=== PATIENT | female | born 1960 | race Caucasian/White ===

== ENCOUNTER → 2017-05-31 | Outpatient (CLI) | payer SELFPAY | PROVIDERS: Visit Provider Physician Assistant | DX: M25.50 Pain in unspecified joint (principal); E03.9 Hypothyroidism, unspecified; I10 Essential (primary) hypertension; E55.9 Vitamin D deficiency, unspecified; R63.5 Abnormal weight gain; Z13.220 Encounter for screening for lipoid disorders | CPT/HCPCS: 36415; 80053; 80061; 82306; 84443; 84550; 85025; 85651; 86038; 86431 ==

== ENCOUNTER → 2018-08-15 14:20 | Outpatient (CLI) | payer MEDICARE, SELFPAY ==
--- NOTE | 2018-08-15 14:33 | XR_ITS ---
XR chest 2V HISTORY: ITS.REASON: BRONCHITIS ORDERING PHYSICIAN: PRESTON Reed PATIENT AGE: 58 years COMPARISON: 06/02/2016 FINDINGS: The cardiomediastinal silhouette and pulmonary vascularity are within normal limits. The lungs are clear without infiltrates, suspicious nodules, or pleural effusions. No acute bony abnormalities. IMPRESSION: Negative chest, no acute finding
--- NOTE | 2018-08-15 14:33 | XR_ITS ---
XR knee RT 3V HISTORY: ITS.REASON: RT KNEE PAIN ORDERING PHYSICIAN: PRESTON Reed PATIENT AGE: 58 years COMPARISON: None FINDINGS: There are severe osteoarthritic changes of the medial compartment with moderate osteoarthritis of the lateral compartment and patellofemoral joint. No fracture or dislocation. No lytic or blastic change. IMPRESSION: Severe osteoarthritis of the medial compartment with moderate osteoarthritis of the lateral compartment and patellofemoral joint
--- NOTE | 2018-08-15 14:33 | XR_ITS ---
XR knee LT 3V HISTORY: ITS.REASON: LT KNEE PAIN ORDERING PHYSICIAN: PRESTON Reed PATIENT AGE: 58 years COMPARISON: None FINDINGS: There are severe osteoarthritic changes of the medial compartment and moderate osteoarthritic change of the lateral compartment and patellofemoral joint. There is mild there is angulation of the tibia with minimal lateral subluxation of the proximal tibia by approximately 4 mm. No fracture or dislocation evident. The there are low density changes involving the lateral femoral condyle. This may be a reflection of the positioning and technique. The findings are similar on the right side probably related to positioning. IMPRESSION: Severe osteoarthritic changes of the medial compartment with moderate osteoarthritis of the lateral compartment and patellofemoral joint
== END ==
PROVIDERS: PCP Physician Assistant; Visit Provider Physician Assistant
DX: J40 Bronchitis, not specified as acute or chronic (principal); M25.562 Pain in left knee; M25.561 Pain in right knee
CPT/HCPCS: 71046; 73562

== ENCOUNTER → 2019-03-12 08:40 | Outpatient (CLI) | payer MEDICARE, SELFPAY ==
--- NOTE | 2019-03-12 08:47 | MM_ITS ---
PROCEDURE: MM DIG SCREENING MAMM BI W/CAD CLINICAL INDICATION: SCREENING There is a history of breast cancer patient's sister diagnosed in her 60s. COMPARISON: MOBILE DIGITAL SCREEN BILAT* from 06/21/2012 DMSB DIG MAMM-SCREEN THOMAS from 12/30/2013 DMSB DIG MAMM-SCREEN THOMAS from 04/24/2015 TECHNIQUE: Standard CC and MLO images were obtained. R2 CAD reviewed. FINDINGS: Scattered fibroglandular densities are seen in both breasts on a background of primarily fatty breast parenchyma. The findings of bilateral and symmetrical. There is no suspicious lesion and no suspicious microcalcifications. IMPRESSION: Fibrofatty parenchyma with no suspicious lesions seen BI-RAD Category: 1 Negative FOLLOW-UP: 1YR 1 Year Follow-up (A letter has been sent to the patient regarding results of the study.) Dictated by: Dr. Haroon Keene MD 03/15/2019 09:[address] Haroon Keene MD in [place] 03/15/2019 09:03
== END ==
PROVIDERS: PCP Family Medicine; Visit Provider Physician Assistant
DX: Z12.31 Encounter for screening mammogram for malignant neoplasm of breast (principal)
CPT/HCPCS: 77067

== ENCOUNTER → 2020-05-20 08:14 | Outpatient (CLI) | payer MEDICARE, SELFPAY ==
--- NOTE | 2020-05-20 08:17 | MM_ITS ---
PROCEDURE: MM DIG SCREENING MAMM BI W/CAD Digital Breast Tomosynthesis Included CLINICAL INDICATION: SCREENING There is a history of breast cancer patient's sister diagnosed after menopause. COMPARISON: MG DMSB DIG MAMM-SCREEN THOMAS from 12/30/2013 MG DMSB DIG MAMM-SCREEN THOMAS from 04/24/2015 MG MM DIG SCREENING MAMM BI W/CAD from 03/12/2019 TECHNIQUE: Standard CC and MLO images and 3D Tomosynthesis was obtained. R2 CAD reviewed. FINDINGS: Diffuse fibroglandular densities are seen throughout both breasts. There is faint arterial calcification in each breast. There is a small nodular density lower inner quadrant left breast best seen on the CC view and best seen on CC bertha images. This was faintly seen previously but appears to have shown slight interval enlargement. It has benign features but recommend the patient return for spot compression views and ultrasound for additional evaluation. There are no suspicious microcalcifications. IMPRESSION: Fibrofatty parenchyma with possible change in asymmetric density left breast BI-RAD Category: 0 Need Additional Imaging Evaluation FOLLOW-UP: IMM Immediate Follow-up Recommended (A letter has been sent to the patient regarding results of the study.) Dictated by: Dr. Haroon Keene MD 05/22/2020 09:12 Dr. Haroon Keene MD in [place] 05/22/2020 09:12
--- NOTE | 2020-05-20 08:23 | XR_ITS ---
PROCEDURE: XR DEXA AXIAL SKELETON CLINICAL HISTORY: POST MENOPAUSAL COMPARISON: No exams were available for comparison FINDINGS: The right hip BMD is 0.555 with a T-score of -2.7. The left hip BMD is 0.728 with a T-score of -1.1. The lumbar spine BMD is 0.924 with a T-score of -1.1. IMPRESSION: This patient is considered osteoporotic according to the World Health Organization criteria. Fracture risk is high. Treatment is advised. Based on these results a follow-up exam is recommended in 1 year. Dictated by: Mason Bah MD 05/21/2020 14:47 Mason Bah MD in [place] 05/21/2020 14:47
== END ==
PROVIDERS: PCP Family Medicine; Visit Provider Physician Assistant
DX: Z12.31 Encounter for screening mammogram for malignant neoplasm of breast (principal); Z78.0 Asymptomatic menopausal state
CPT/HCPCS: 77063; 77067; 77080

== ENCOUNTER → 2020-06-12 14:35 | Outpatient (CLI) | payer MEDICARE, SELFPAY ==
[2020-06-12 14:00] VITALS: BP 154/76; PULSE 62; RESP 18; TEMP 36.3; O2SAT 98
--- NOTE | 2020-06-12 14:40 | MM_ITS ---
PROCEDURE: MM DIG MAMM DX UNILAT LT CAD Digital Breast Tomosynthesis Included CLINICAL INDICATION: ABN MAMM COMPARISON: MG DMSB DIG MAMM-SCREEN THOMAS from 04/24/2015 MG MM DIG SCREENING MAMM BI W/CAD from 03/12/2019 MG MM DIG SCREENING MAMM BI W/CAD from 05/20/2020 US US BREAST LT COMPLETE from 06/12/2020 TECHNIQUE: Standard CC and MLO images and 3D Tomosynthesis was obtained. R2 CAD reviewed. Spot compression MLO and CC views were obtained as well. FINDINGS: The tiny nodular density appears less worrisome on the spot compression views. No architectural distortion and no suspicious microcalcifications. Ultrasound performed same date showed no abnormal cystic or solid lesion at this location. IMPRESSION: Tiny nodular density likely representing and very early fibroadenoma isoechoic on ultrasound and with certainly no findings to suggest malignancy BI-RAD Category: 2 Benign Finding(s) FOLLOW-UP: 1YR 1 Year Follow-up (A letter has been sent to the patient regarding results of the study.) Dictated by: Dr. Haroon Keene MD 06/21/2020 09:00 Dr. Haroon Keene MD in [place] 06/21/2020 09:00
--- NOTE | 2020-06-12 14:40 | US_ITS ---
PROCEDURE: US BREAST LT COMPLETE CLINICAL INDICATION: ABN MAMM COMPARISON: No exams were available for comparison FINDINGS: Ultrasound survey of the breast shows rather homogeneous echogenicity. There is no suspicious cystic or solid lesion seen. There is a normal appearing node in the axilla. IMPRESSION: Essentially negative ultrasound left breast and recommend the patient continue with yearly screening mammography Dictated by: Dr. Haroon Keene MD 06/21/2020 09:04 Dr. Haroon Keene MD in [place] 06/21/2020 09:04
== END ==
PROVIDERS: PCP Family Medicine; Visit Provider Physician Assistant
DX: R92.8 Other abnormal and inconclusive findings on diagnostic imaging of breast (principal); M81.0 Age-related osteoporosis without current pathological fracture
CPT/HCPCS: 76641; 77061; 77065; 96372; G0279

== ENCOUNTER 2020-09-10 16:24 | Emergency (ER) | payer MEDICARE, SELFPAY ==
[2020-09-10 16:25] VITALS: BP 154/78; PULSE 81; RESP 18; TEMP 36.7; O2SAT 97; BMI 48.0
--- NOTE | 2020-09-10 16:25 | PC.NURSE ---
at bedside upon arrival.
--- NOTE | 2020-09-10 16:33 | PC.NURSE ---
FSBS 103
--- NOTE | 2020-09-10 16:36 | PC.NURSE ---
Pt to rad.
--- NOTE | 2020-09-10 16:37 | HMH.EDGENADL ---
ED Disposition Clinical Impression: Ruby's palsy Disposition: Home, Self-Care Condition on Discharge: Good Instructions: DI for Aragon Palsy Additional Instructions: Prednisone and Valtrex as prescribed Artificial tears every hour while awake Ophthalmic ointment at night Eye should be taped shut at night Protective glasses or goggles to protect from sunshine and wind Follow-up with your primary care provider, call tomorrow for appointment. Prescriptions: predniSONE [Prednisone 20mg Tab] 60 mg PO DAILY #21 tab Transmission Status: Received by [facility] Valacyclovir HCl [Valtrex] 1,000 mg PO TID #21 tab Transmission Status: Received by [facility] Referrals: Antonio Odell MD [Primary Care Provider] - 3 days (See him in his office on Monday) - Critical Care Critical Care Time: No Attestation: On , the high probability of a clinically significant, sudden or life threatening deterioration of the following system(s) required my full and direct attention, intervention and personal management. The time I documented below is in addition to time spent performing reported procedures but includes the following listed in this critical care notation. Medical Decision Making - Nik Inquiry Pt receiving controlled substance: No Vital Signs: 09/10/20 16:25 09/10/20 17:01 09/10/20 17:31 Temperature 98.1 F Temperature Source Oral Pulse Rate 64 62 Pulse Rate [Right] 81 Respiratory Rate 18 Blood Pressure 139/70 131/71 Blood Pressure [Right Arm] 154/78 H Blood Pressure Mean 80 86 Blood Pressure Mean [Right Arm] 103 Blood Pressure Source Blood Pressure Position 02 Sat by Pulse Oximetry 97 95 95 09/10/20 18:05 09/10/20 18:30 Temperature Temperature Source Pulse Rate 79 75 Pulse Rate [Right] Respiratory Rate 14 12 Blood Pressure 117/52 L 120/62 Blood Pressure [Right Arm] Blood Pressure Mean Blood Pressure Mean [Right Arm] Blood Pressure Source Automatic Cuff Automatic Cuff Blood Pressure Position Supine Supine 02 Sat by Pulse Oximetry 93 L 94 L - Lab Data Lab Results 09/10/20 16:37: WBC 8.1, RBC 4.82, Hgb 13.8, Hct 42.0, MCV 87.2, MCH 28.6, MCHC 32.8, RDW 14.5, Plt Count 262, MPV 7.9, Neut % (Auto) 59.0, Lymph % (Auto) 32.3, [place] % (Auto) 5.8, Eos % (Auto) 2.5, Baso % (Auto) 0.4, Neut # (Auto) 4.8, Lymph # (Auto) 2.6, [place] # (Auto) 0.5, Eos # (Auto) 0.2, Baso # (Auto) 0.0 09/10/20 16:37: PT 10.6, INR 0.89 L 09/10/20 16:37: Sodium 139, Potassium 4.1, Chloride 104, Carbon Dioxide 28, Anion Gap 11.1, BUN 22 H, Creatinine 0.80, Estimated Creat Clear 66, Estimated GFR 74, Est GFR ( Amer) 89, Glucose 107 H, Calcium 9.5, Total Bilirubin 0.4, AST 23, ALT 15, Alkaline Phosphatase 96, Total Protein 7.5, Albumin 4.2, Globulin 3.3 H, Albumin/Globulin Ratio 1.3 Result diagrams: 09/10/20 16:37 09/10/20 16:37 Orders (Tests/Meds): ED MEDICATIONS Discontinued Medications Generic Name Dose Route Start Last Admin Trade Name Freq PRN Reason Stop Dose Admin Diphenhydramine HCl 25 mg 09/10/20 17:57 09/10/20 18:10 Diphenhydramine 50mg/Ml Vial IV 09/10/20 17:58 25 mg ONCE ONE Administration Iopamidol 100 ml 09/10/20 19:33 09/10/20 19:35 Iopamidol-370 (76%);100ml Bottle IV 09/10/20 19:34 100 ml ONCE ONE Administration Methylprednisolone Sodium Succinate 125 mg 09/10/20 17:57 09/10/20 18:07 Methylprednisolone Sod Succ 125mg Vial IV 09/10/20 17:58 125 mg ONCE ONE Administration Sodium Chloride 50 ml 09/10/20 19:33 09/10/20 19:35 0.9 % Sodium Chloride 50 Ml Vial IV 09/10/20 19:34 50 ml ONCE ONE Administration ORDERS Category Date Time Status CT angio head Stat Cat Scan 09/10/20 17:[address] angio neck Stat Cat Scan 09/10/20 17:[address] head/brain wo con Stat Cat Scan 09/10/20 16:38 Taken - CT Data CT Scan: Head Time Received: 17:30 ([facility] fax) ED CT Reviewed: Yes: I have viewed the r
--- NOTE | 2020-09-10 16:38 | CT_ITS ---
PROCEDURE: CT HEAD/BRAIN WO CON CLINICAL INDICATION: facial droop Right-sided facial droop COMPARISON: No exams were available for comparison TECHNIQUE: Axial images obtained. All CT scans at the facility use one or more dose reduction, viz: automated exposure control, ma/kV adjustment per patient size (including targeted exams where dose is matched to indication, i.e. head), or iterative reconstruction technique. FINDINGS: No midline shift, mass effect, intracranial hemorrhage, hydrocephalus, or extra-axial fluid collection is evident. There is a 7 mm coarse calcific density in the right parietal lobe. 8 mm sub dural calcification noted in the right frontal parietal region. There is mild encephalomalacia change in the left posterior parietal region. This is just deep to craniotomy site. The calvarium has an unremarkable appearance. No mastoid effusion. No sinus air-fluid level. IMPRESSION: No acute intracranial findings. Dictated by: Mason Bah MD 09/11/2020 06:10 Mason Bah MD in [place] 09/11/2020 06:10
--- NOTE | 2020-09-10 16:40 | PC.NURSE ---
STATED PT WILL NOT MEET TPA CRITERIA BASED OFF NIH SCALE
[2020-09-10 17:01] VITALS: BP 139/70; PULSE 64; O2SAT 95
--- NOTE | 2020-09-10 17:02 | ECG_ITS ---
APPROVED REPORT Exam: Resting ECG HR:66 bpm ECG Measurements Heart Rate 66 AXES ID 170 P 62 QRSd 94 QRS 28 QT 430 T 32 QTc 450 Conclusion Normal sinus rhythm Normal ECG Electronically signed by : Royer Lee, 09/12/2020 08:41:58
[2020-09-10 17:04] LABS: Basophils % 0.4 % (0.1-2.0); Chloride 104 mmol/L (98-107); Eosinophils # 0.2 K/mm3 (0.0-0.4); Eosinophils % 2.5 % (0.1-12.0); Hemoglobin 13.8 g/dL (12.2-16.2); Lymphocytes # 2.6 K/mm3 (0.7-4.5); Lymphocytes % 32.3 % (10-50); Mean Corpuscular HGB Conc 32.8 g/dL (31.8-35.4); Mean Corpuscular Hemoglobin 28.6 pg (27.0-31.2); Mean Corpuscular Volume 87.2 fl (81-99); Mean Platelet Volume 7.9 fl (7.4-10.4); Monocytes # 0.5 K/mm3 (0.1-1.0); Monocytes % 5.8 % (1.7-9.3); Neutrophils # 4.8 K/mm3 (1.8-7.8); Platelet Count 262 K/mm3 (142-424); Red Blood Count 4.82 M/mm3 (4.20-5.40); Red Cell Distribution Width 14.5 % (11.5-17.5); Sodium 139 mmol/L (136-145); White Blood Count 8.1 K/mm3 (4.8-10.8)
[2020-09-10 17:05] LABS: Potassium 4.1 mmoL/L (3.5-5.1)
[2020-09-10 17:07] LABS: Alanine Aminotransferase 15 U/L (12-78); Albumin Level 4.2 g/dl (3.5-5.0); Albumin/Globulin Ratio 1.3 (1.1-1.8); Alkaline Phosphatase 96 U/L (38-126); Anion Gap 11.1 mEq/L (5-15); Aspartate Amino Transferase 23 U/L (14-36); Bilirubin,Total 0.4 mg/dl (0.2-1.3); Blood Urea Nitrogen 22 mg/dl (7-17); Calcium 9.5 mg/dl (8.4-10.2); Carbon Dioxide 28 mmol/L (22.0-30.0); Creatinine Clearance Estimated 66 mL/min (50-200); Estimated Glomerular Filt Rate 74 ml/min (>60); GFR (African American) 89 ML/MIN (>60); Globulin 3.3 g/dL (1.3-3.2); Glucose 107 mg/dl (74-100); Total Protein,Serum 7.5 g/dl (6.3-8.2)
[2020-09-10 17:14] LABS: INR 0.89 (0.9-1.1); Prothrombin Time 10.6 seconds (10.1-12.5)
--- NOTE | 2020-09-10 17:21 | PC.NURSE ---
ct called regarding head ct. informed that radiologist was still reading the ct
[2020-09-10 17:31] VITALS: BP 131/71; PULSE 62; O2SAT 95
--- NOTE | 2020-09-10 17:39 | CT_ITS ---
Procedure: CT ANGIO NECK CLINICAL HISTORY: facial weakness Facial weakness, right-sided facial droop with tongue numbness COMPARISON: CT CT ANGIO NECK from 09/10/[address] HEAD/BRAIN WO CON from 09/10/2020 TECHNIQUE: IV Contrast: 100ml Isovue 370. The patient pre-medicated with 25 mg of Benadryl IV the and 125 mg IV of Solu-Medrol Axial images obtained with sagittal and coronal reformats. All CT scans at the facility use one or more dose reduction, viz: automated exposure control, ma/kV adjustment per patient size (including targeted exams where dose is matched to indication, i.e. head), or iterative reconstruction technique. FINDINGS: CTA neck: The aortic arch has an unremarkable appearance. The great vessels are unremarkable. No significant stenosis of the carotid arteries.. No ulcerating plaque or dissection. There is minimal narrowing of the carotid bulb with some mild soft plaque of approximately 30 percent. There is tortuosity of the internal carotids. Minimal nonocclusive plaque is present in the left carotid bulb. No significant stenosis or dissection or ulcerating plaque. The left vertebral artery is dominant. The right vertebral is hypoplastic. No evidence of vertebral dissection or significant stenosis. CTA head: Nonocclusive calcific plaque is present within the ICAs cavernous portion. Small infundibulum is present at the anterior meningeal hypophyseal origin on the right. There is persistent origin of the right posterior cerebral artery. There is some minimal irregularity of the internal carotids within the cavernous portion. No aneurysm AVM or major intracranial occlusive process is evident. Incidental findings include heterogeneous mild enlargement of the thyroid gland with a 1 cm nodule in the left lobe. Small lymph nodes are present in the cervical region. There is some asymmetric prominence of the base of the tongue on the left. Direct visualization may provide further evaluation. No intracranial enhancing lesions are evident. Prior left craniotomy in the parietal occipital junction with encephalomalacia change. No evidence of dural sinus thrombosis. IMPRESSION: 1. Mild atheromatous changes of the carotids. No significant stenotic lesion or dissection evident. 2. Atheromatous changes of the cavernous portion of the ICAs on both sides with calcific plaque and luminal irregularity. No significant stenotic lesion evident. No aneurysm or AVM. 3. Other nonacute findings as described above Dictated by: Mason Bah MD 09/11/2020 11:56 Mason Bah MD in [place] 09/11/2020 11:58
--- NOTE | 2020-09-10 17:52 | PC.NURSE ---
TO CT PER WHEELCHAIR FOR CTA
[2020-09-10 18:05] VITALS: BP 117/52; PULSE 79; RESP 14; O2SAT 93
--- NOTE | 2020-09-10 18:12 | PC.NURSE ---
EVA WALSH GAVE MEDICATIONS IN CT TO PRE TREAT PATIENT PRIOR TO CT WITH CONTRAST. CT WANTS TO ALLOW ONE HOUR AFTER ADMINISTRATION TO PERFORM CTA
[2020-09-10 18:30] VITALS: BP 120/62; PULSE 75; RESP 12; O2SAT 94
--- NOTE | 2020-09-10 19:14 | PC.NURSE ---
Pt ambulated independently to bathroom at this time
[2020-09-10 20:44] VITALS: BP 128/65; PULSE 71; RESP 14; TEMP 36.7; O2SAT 97
[2020-10-14 14:03] LABS: POC Glucose,Bedside 103 (70-110)
== END 2020-09-10 20:46 | disposition home or self-care (01) ==
PROVIDERS: Emergency Provider Emergency Medicine; PCP Family Medicine
DX: G51.0 Bell's palsy (principal); R29.701 NIHSS score 1; F33.1 Major depressive disorder, recurrent, moderate; I10 Essential (primary) hypertension; M79.7 Fibromyalgia; E03.9 Hypothyroidism, unspecified; Z85.820 Personal history of malignant melanoma of skin
CPT/HCPCS: 70450; 70496; 70498; 80053; 82962; 85025; 85610; 93005; 96374; 96375; 99283; Q9967

== ENCOUNTER → 2021-06-21 12:30 | Outpatient (CLI) | payer MEDICARE, SELFPAY | PROVIDERS: PCP Family Medicine; Visit Provider Nurse Practitioner | DX: Z20.822 Contact with and (suspected) exposure to COVID-19 (principal) | CPT/HCPCS: C9803; U0003; U0005 ==

== ENCOUNTER 2023-02-09 21:10 | Emergency (ER) | payer MEDICARE, SELFPAY ==
[2023-02-09 21:16] VITALS: BP 114/88; PULSE 95; RESP 20; O2SAT 98; BMI 43.1
--- NOTE | 2023-02-09 21:27 | ECG_ITS ---
APPROVED REPORT Exam: Resting ECG HR:88 bpm ECG Measurements Heart Rate 88 AXES WY 153 P 34 QRSd 113 QRS 7 QT 384 T -1 QTc 429 Conclusion SINUS RHYTHM Nonsignificant isolated Q wave in lead III Minimally delayed poor R wave progression Otherwise NORMAL ECG UNCONFIRMED REPORT Electronically signed by : Royer Lee MD 02/10/2023 07:21:53
[2023-02-09 21:59] LABS: Basophils % 0.2 % (0.1-2.0); Eosinophils # 0.1 K/mm3 (0.0-0.4); Eosinophils % 0.7 % (0.1-12.0); Hematocrit 46.8 % (37.0-47.0); Hemoglobin 15.6 g/dL (12.2-16.2); Lymphocytes # 2.2 K/mm3 (0.7-4.5); Lymphocytes % 15.8 % (10-50); Mean Corpuscular HGB Conc 33.4 g/dL (31.8-35.4); Mean Corpuscular Hemoglobin 28.6 pg (27.0-31.2); Mean Corpuscular Volume 85.9 fl (81-99); Mean Platelet Volume 10.2 fl (7.4-10.4); Monocytes # 0.8 K/mm3 (0.1-1.0); Monocytes % 5.6 % (1.7-9.3); Neutrophils % 77.6 % (37.0-80.0); Platelet Count 225 K/mm3 (142-424); Red Blood Count 5.45 M/mm3 (4.20-5.40); Red Cell Distribution Width 14.4 % (11.5-17.5); White Blood Count 14.2 K/mm3 (4.8-10.8)
[2023-02-09 22:00] LABS: Chloride 102 mmol/L (98-107); Potassium 3.2 mmoL/L (3.5-5.1); Sodium 139 mmol/L (136-145)
--- NOTE | 2023-02-09 22:00 | HMH.EDGENADL ---
Discharge Plan Disposition Patient Disposition: Home, Self-Care Condition: Good Prescriptions Prescriptions: New promethazine 25 mg suppository 25 mg DC Q6H PRN (Reason: sedation) Qty: 12 0RF No Action losartan-hydrochlorothiazide 1 EACH tablet 1 each PO DAILY levothyroxine 50 MCG tablet 50 mcg PO DAILY sertraline 50 MG tablet 50 mg PO DAILY calcium carbonate 500 MG tablet 500 mg PO DAILY cholecalciferol (vitamin D3) 1,000 UNIT capsule 1,000 unit PO DAILY pregabalin 100 MG capsule 100 mg PO DAILY sulfamethoxazole-trimethoprim 1 EACH tablet 1 each PO BID prednisone 20 MG tablet 60 mg PO DAILY Qty: 21 0RF valacyclovir 1,000 MG tablet 1,000 mg PO TID Qty: 21 0RF Referrals Follow up/Referrals: Antonio Odell MD [Primary Care Provider] - See instructions Activity Restrictions/Add. Instructions Additional Instructions/Restrictions: No evidence of complication on CT today, 02/09. 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 Call your family doctor to establish care for this visit to the emergency department and schedule follow-up within 48 hours to ensure improvement. If you have any worsening of your condition or any other concerning signs or symptoms, return to the emergency department or your primary care doctor for further evaluation. Clinical Impressions Clinical Impression: Vomiting Instructions Patient Instructions: DI for Diarrhea and Traveler's Diarrhea -- Adult, DI for Diarrhea and Traveler's Diarrhea -- Child, DI for Nausea -- Adult, DI for Nausea -- Child Discharge ED Provider: Neel Evans General Adult [facility] General Chief complaint: Nausea/Vomiting/Diarrhea Stated complaint: vomiting, feels faint Time Seen by Provider: 02/09/23 21:19 Mode of Arrival: Wheelchair Source of Information: Patient Limitations: No Limitations Description of Symptoms (Recalled from ER Triage Doc. by RN): pt reports she is 4wks post gasteric sleeve and hiatal hernia repair. pt states she has had N/V all day, mostly dry heaving. pt states she is having minimal generalized abd pain. daughter reports her surgeon Dr. Escoto told her to come to the ED in [place]. the daughter reports they were unable to go that far because the pt, kept passing out. pt has her tongue protruding by choice. pt keeps sticking her finger down her throat. when asked about it she stated, I'll do whatever helps. pt declines having her temperature taken. History of Present Illness HPI narrative: This is a 62-year-old female with a recent history of gastric sleeve 4 weeks prior to arrival presenting with nausea and vomiting. Patient has had nausea and vomiting for approximately 2 days and has been unable to tolerate p.o. intake for about 24 hours. No current vomiting, but active retching. She is got up yellow stomach acid, but denies blood or bile. Denies fevers or chills, abdominal pain, flank pain, dysuria hematuria, diarrhea or any other concerns. Related Data Home Medications Medication Instructions Recorded Confirmed levothyroxine 50 mcg tablet 50 mcg PO DAILY thyroid 12/31/18 09/10/20 losartan 100 1 each PO DAILY blood pressure 12/31/18 09/10/20 mg-hydrochlorothiazide 25 mg tablet sertraline 50 mg tablet 50 mg PO DAILY mood 12/31/18 09/10/20 calcium carbonate 500 mg calcium 500 mg PO DAILY Supplement 06/12/20 09/10/20 (1,250 mg) tablet cholecalciferol (vitamin D3) 25 1,000 unit PO DAILY Supplement 06/12/20 09/10/20 mcg (1,000 unit) capsule pregabalin 100 mg capsule 100 mg PO DAILY nerve pain 06/12/20 09/10/20 sulfamethoxazole 800 1 each PO BID abx 09/10/20 09/10/20 mg-trimethoprim 160 mg tablet Previous Rx's Medication Instructions Recorded prednisone 20 mg tablet 60 mg PO DAILY #21 tabs 09/10/20 valacyclovir 1 gram tablet 1,000 mg PO TID #21 tabs 09/10/20 promethazine 25 mg rectal 25 mg DC Q6H PRN sedation #12
[2023-02-09 22:01] VITALS: BP 126/58; PULSE 88; RESP 18; O2SAT 96
[2023-02-09 22:03] LABS: Alanine Aminotransferase 112 U/L (12-78); Albumin/Globulin Ratio 1.3 (1.1-1.8); Alkaline Phosphatase 125 U/L (38-126); Anion Gap 21.2 mEq/L (5-15); Aspartate Amino Transferase 56 U/L (14-36); Bilirubin,Total 1.6 mg/dl (0.2-1.3); Blood Urea Nitrogen 27 mg/dl (7-17); Carbon Dioxide 19 mmol/L (22.0-30.0); Creatinine Clearance Estimated 41 mL/min (50-200); Estimated Glomerular Filt Rate 42 ml/min (>60); GFR (African American) 51 ML/MIN (>60); Globulin 3.2 g/dL (1.3-3.2); Total Protein,Serum 7.2 g/dl (6.3-8.2)
[2023-02-09 22:04] LABS: Calcium 10.3 mg/dl (8.4-10.2); Glucose 175 mg/dl (74-100); Lactic Acid 1.6 mmol/L (0.7-2.1)
[2023-02-09 22:19] LABS: Troponin I < 0.01 ng/ml (0.00-0.034)
--- NOTE | 2023-02-09 22:22 | CT_ITS ---
PROCEDURE INFORMATION: Exam: CT Abdomen And Pelvis With Contrast Exam date and time: 02/09/2023 10:57 PM Age: 62 years old Clinical indication: Nausea and vomiting; Prior surgery; Surgery date: <1 month; Surgery type: 4 weeks postop sleeve; Additional info: Vomiting, recent sleeve TECHNIQUE: Imaging protocol: Computed tomography of the abdomen and pelvis with contrast. Radiation optimization: All CT scans at this facility use at least one of these dose optimization techniques: automated exposure control; mA and/or kV adjustment per patient size (includes targeted exams where dose is matched to clinical indication); or iterative reconstruction. Contrast material: ISOVUE; Contrast volume: 75 ml; Contrast route: IV; REPORTING DATA: Count of CT and Cardiac NM exams in prior 12 months: This patient has received 0 known CTs and 0 known cardiac nuclear medicine studies in the 12 months prior to the current study. COMPARISON: DX CXR2V XR chest 2V 08/15/2018 2:36 PM FINDINGS: Liver: Subcentimeter hypodensity in the left hepatic lobe is too small to characterize. Gallbladder and bile ducts: Unremarkable. Pancreas: Unremarkable. Spleen: Splenic cyst versus hemangioma. Wedge-shaped peripheral hypodensity along the medial aspect of the spleen with slight parenchymal retraction in this region. Adrenal glands: Unremarkable. Kidneys and ureters: Unremarkable. No hydronephrosis. Stomach and bowel: Status post sleeve gastrectomy. Appendix: No evidence of appendicitis. Intraperitoneal space: Unremarkable. Vasculature: Mild atherosclerotic disease in the abdomen and pelvis. Moderate narrowing of the celiac trunk beneath the diaphragmatic dulce with mild poststenotic dilation. Lymph nodes: Unremarkable. Urinary bladder: Unremarkable as visualized. Reproductive: Unremarkable as visualized. Bones/joints: No acute osseous abnormality. Soft tissues: Mild subcutaneous stranding in the anterior abdominal wall, query sequela of subcutaneous injections. IMPRESSION: 1. Status post sleeve gastrectomy without CT evidence complication. 2. Peripheral wedge-shaped hypodensity along the medial aspect spleen with suggestion of mild parenchymal retraction is suggestive of prior splenic infarction. 3. 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
[2023-02-09 22:26] LABS: Lipase 184 U/L (23-300)
[2023-02-09 22:31] VITALS: BP 135/79; PULSE 84; RESP 20; O2SAT 98
--- NOTE | 2023-02-09 23:53 | PC.NURSE ---
pt ambulated to bathroom and didn't collect a urine specimen. will continue to try to collect.
[2023-02-10 00:01] VITALS: BP 151/79; PULSE 80; RESP 18; O2SAT 97
[2023-02-10 01:18] VITALS: BP 151/79; PULSE 77; RESP 20; TEMP 36.6; O2SAT 98
== END 2023-02-10 01:18 | disposition home or self-care (01) ==
PROVIDERS: Emergency Provider Emergency Medicine; PCP Family Medicine
DX: R10.84 Generalized abdominal pain (principal); R11.2 Nausea with vomiting, unspecified; Y83.6 Removal of other organ (partial) (total) as the cause of abnormal reaction of the patient, or of later complication, without mention of misadventure at the time of the procedure; E87.6 Hypokalemia; D72.829 Elevated white blood cell count, unspecified; N17.9 Acute kidney failure, unspecified
CPT/HCPCS: 74177; 80053; 83605; 83690; 84484; 85025; 93005; 96361; 96374; 96375; 99285; Q9967

== ENCOUNTER 2023-07-18 10:14 | Outpatient (CLI) | payer MEDICARE, SELFPAY ==
--- NOTE | 2023-07-18 10:28 | MM_ITS ---
PROCEDURE INFORMATION: Exam: MG Bilateral Screening 3D Mammography Exam date and time: 07/18/2023 10:24 AM Age: 63 years old Clinical indication: Screening examination TECHNIQUE: Imaging protocol: Bilateral Screening tomosynthesis and 2D mammography including computer-aided detection (CAD) when performed. COMPARISON: 1. MG MM DIG MAMM DX UNILAT LT CAD 06/12/2020 2:42 PM 2. MG MM DIG SCREENING MAMM BI W/CAD 05/20/2020 8:21 AM FINDINGS: MAMMOGRAPHY: Breast composition: The breasts are almost entirely fatty. Mass: No new or suspicious masses Architectural distortion: None. Calcifications: No suspicious calcifications. Asymmetric density: None. Skin thickening: None. Axillary adenopathy: None. IMPRESSION: No mammographic evidence of malignancy. Annual screening is recommended unless otherwise clinically indicated. ASSESSMENT: BI-RADS Category 1: Negative
== END 2023-07-18 23:59 ==
LOC: RAD 10:16
PROVIDERS: PCP Family Medicine; Visit Provider Family Medicine
DX: Z12.31 Encounter for screening mammogram for malignant neoplasm of breast (principal)
CPT/HCPCS: 77063; 77067

== ENCOUNTER 2023-10-20 13:14 | Emergency (ER) | payer MEDICARE, SELFPAY ==
[2023-10-20 13:15] VITALS: BP 168/107; PULSE 76; RESP 18; TEMP 36.5; O2SAT 98; BMI 28.3
--- NOTE | 2023-10-20 13:26 | ED_ITS ---
Discharge Plan Disposition Patient Disposition: Home, Self-Care Condition: Good Prescriptions Prescriptions: New methocarbamol 500 mg tablet 500 mg PO Q8H Qty: 90 0RF No Action losartan-hydrochlorothiazide 1 EACH tablet 1 each PO DAILY levothyroxine 50 MCG tablet 50 mcg PO DAILY sertraline 50 MG tablet 50 mg PO DAILY calcium carbonate 500 MG tablet 500 mg PO DAILY cholecalciferol (vitamin D3) 1,000 UNIT capsule 1,000 unit PO DAILY pregabalin 100 MG capsule 100 mg PO DAILY sulfamethoxazole-trimethoprim 1 EACH tablet 1 each PO BID prednisone 20 MG tablet 60 mg PO DAILY Qty: 21 0RF valacyclovir 1,000 MG tablet 1,000 mg PO TID Qty: 21 0RF promethazine 25 mg suppository 25 mg NM Q6H PRN (Reason: sedation) Qty: 12 0RF Referrals Follow up/Referrals: Antonio Odell MD [Primary Care Provider] - See instructions Activity Restrictions/Add. Instructions Additional Instructions/Restrictions: We have repaired your laceration with 2 kayleen. Those will need to be removed in 10 to 14 days. Please return with any new or worsening symptoms, particularly headache, nausea, vomiting, bony pain, or other new or worsening symptoms. Clinical Impressions Clinical Impression: Laceration of scalp Instructions Patient Instructions: DI for Laceration Repair Discharge ED Provider: Didier Celaya General Adult HPI General Chief complaint: Wound/Laceration Stated complaint: AO 10/20/23 @12:30, fell and hit head Time Seen by Provider: 10/20/23 13:26 History of Present Illness HPI narrative: The patient, a 63-year-old individual, presents today after falling backwards and hitting her head on concrete around 12:30 PM while planting garcia. The patient reports backing up and striking a concrete border, resulting in a fall directly backwards. She describes sustaining a gash on the head but did not lose consciousness. The patient denies experiencing any nausea, vomiting, vision issues, or confusion following the incident. She reports no neck pain or pain in other areas except the head at the moment. The patient mentions she does not take any blood-thinning medications. She has no amnesia to the event. She denies any neck pain. The patient has a significant past medical history of stage 4 melanoma diagnosed seven years ago, involving 13 internal tumors. She underwent treatment with Keytruda infusions every three weeks for nearly two years and has had brain surgery for a biopsy followed by stereotactic radiation. The patient continues to undergo regular monitoring with annual CT scans and MRIs. She expresses u ncertainty about her tetanus vaccination status. Please note that above description of symptoms, in this electronic medical record under categorization of recalled from ER triage doctor by RN are r eflective of an initial nursing assessment, however, is not reflective of my full history and physical exam that was personally taken and clarified. Consequentially, this preceding description of symptoms, which may include the patient's categorized chief complaint in the EMR, do not reflect my personal clinical impression, and the ultimate description of history of present illness and patient stated complaints should be deferred to this section of the note. Unless stated otherwise or congruent with this section of the note, additional signs, symptoms, or incongruence should be interpreted as inaccurate with my clinical impression. Related Data Home Medications Medication Instructions Recorded Confirmed levothyroxine 50 mcg tablet 50 mcg PO DAILY thyroid 12/31/18 09/10/20 losartan 100 1 each PO DAILY blood pressure 12/31/18 09/10/20 mg-hydrochlorothiazide 25 mg tablet sertraline 50 mg tablet 50 mg PO DAILY mood 12/31/18 09/10/20 calcium carbonate 500 mg PO DAILY Supplement 06/12/20 09/10/20 cholecalciferol (vitamin D3) 25 1,000 unit PO DAILY Supplement 06/12/20 09/10/20 mcg (1,000 unit) capsule pregabalin 100 mg capsule 100 mg PO DAILY nerve pain 06/12/20 09/10/20 sulfamethoxazole 800 1 each PO BID abx 09/10/20 09/10/20 mg-trimethoprim 160 mg tablet Previous Rx's Medication Instructions Recorded prednisone 20 mg tablet 60 mg (3 x 20 mg) PO DAILY #21 tabs 09/10/20 valacyclovir 1 gram tablet 1,000 mg PO TID #21 tabs 09/10/20 promethazine 25 mg rectal 25 mg NM Q6H PRN sedation #12 ea 02/10/23 suppository methocarbamol 500 mg tablet 500 mg PO Q8H #90 tabs 10/20/23 Allergies Allergy/AdvReac Type Severity Reaction Status Date / Time azithromycin [From ZITHROMAX] Allergy Unknown Verified 09/10/20 17:59 penicillin V Allergy Unknown Verified 09/10/20 17:59 Penicillins Allergy Unknown Verified 09/10/20 17:59 Iodinated Contrast Media Allergy Verified 09/10/20 18:01 [facility] Disclaimer: The information contained in this section may have been updated after the patient was seen, as this information can be updated by other users. Social History Smoking Status: Never smoker alcohol intake: never substance use type: denies use current occupational status: disabled Travel in the last 8 weeks: None household members: spouse housing: house caffeine: No ROS Obtained: Yes other As per HPI Physical Exam General General appearance: alert and in no apparent distress Head Head exam: atraumatic and normocephalic Eye Eye exam: Present normal appearance Neck Neck exam: Present normal inspection Chest Chest inspection: Present normal inspection and symmetric chest wall rise Respiratory Respiratory exam: Present normal lung sounds bilaterally; Absent respiratory distress Cardiovascular Cardiovascular exam: Present regular rate and normal rhythm Abdominal Exam Abdominal exam: Present soft Neurological Exam Neurological exam: Present alert and oriented X3 Psychiatric Psychiatric exam: Present normal affect and normal mood Skin Skin exam: Present warm and dry Other Other exam information: 2 cm laceration to occipital scalp, no cervical spinal tenderness to palpation, no palpable hematoma, skull depression, appreciable injury elsewhere. Alert and oriented, at baseline per family at bedside. Medical Decision Making Medical Records Medical records reviewed: Yes I reviewed the patient's medical records. Nik Inquiry Pt receiving controlled substance: No Vital Signs: 10/20/23 13:15 10/20/23 14:00 10/20/23 14:30 Temperature 97.7 F Temperature Source Oral Pulse Rate 73 75 Pulse Rate [Left Radial] 76 Respiratory Rate 18 Blood Pressure 141/89 H 124/91 H Blood Pressure [Right Arm] 168/107 H Blood Pressure Mean 104 Blood Pressure Mean [Right Arm] 127 Blood Pressure Source [Right Arm] Automatic Cuff Blood Pressure Position [Right Arm] Sitting 02 Sat by Pulse Oximetry 98 98 99 Oxygen Delivery Method Room Air Room Air 10/20/23 14:41 Temperature 97.7 F Temperature Source Oral Pulse Rate 78 Pulse Rate [Left Radial] Respiratory Rate 18 Blood Pressure 124/90 Blood Pressure [Right Arm] Blood Pressure Mean Blood Pressure Mean [Right Arm] Blood Pressure Source [Right Arm] Blood Pressure Position [Right Arm] 02 Sat by Pulse Oximetry Oxygen Delivery Method Room Air Orders (Tests/Meds): ED MEDICATIONS Discontinued Medications Generic Name Dose Route Start Last Admin Trade Name [place] PRN Reason Stop Dose Admin Lidocaine/Prilocaine 5 gm 10/20/23 13:49 10/20/23 14:11 Lidocaine/Prilocaine 5gm Tube TP 10/20/23 13:50 5 gm ONCE ONE Administration Tetanus/Reduced Diphtheria/Acell Pertussis 0.5 ml 10/20/23 13:47 10/20/23 14:11 Tet/Diphth/Pert-Adult 0.5ml Syringe IM 10/20/23 13:48 0.5 ml .ONCE ONE Administration Medical Decision Narrative: Patient with history and exam per above presenting for evaluation scalp laceration following nonsyncopal fall from standing. Diagnoses considered include laceration, tetanus exposure, patient does not meet criteria for CT imaging based off history physical exam for evaluation of occult intracranial hemorrhage Patient was administered Tdap, laceration was repaired after administration of topical lidocaine My clinical impression at this time is most consistent with uncomplicated scalp laceration I discussed my clinical impression with patient and answered all questions. At this time, the evidence for any other entities in the differential is insufficient to warrant any further testing or ED observation. This was explained to the patient. The patient was advised that persistent or worsening symptoms require further evaluation. I confirmed the patient's understanding of this discussion. Procedures Laceration Laceration 1: Site: scalp Size (cm): 2 Description: linear Depth: simple, single layer Pre-repair: irrigated extensively and deep structures intact Skin layer closed with: other (kayleen (2)) Critical Care Critical Care Time Critical Care Time: No
[2023-10-20 14:00] VITALS: BP 141/89; PULSE 73; O2SAT 98
[2023-10-20] MEDS: TET/DIPHTH/PERT-ADULT 0.5ML SYRINGE 0.5 ML IM (14:11)
[2023-10-20] MEDS: LIDOCAINE/PRILOCAINE 5GM TUBE 5 GM TP (14:11)
[2023-10-20 14:30] VITALS: BP 124/91; PULSE 75; O2SAT 99
[2023-10-20 14:41] VITALS: BP 124/90; PULSE 78; RESP 18; TEMP 36.5; O2SAT 100
== END 2023-10-20 14:56 | disposition home or self-care (01) ==
PROVIDERS: Emergency Provider Emergency Medicine; PCP Family Medicine
DX: S01.01XA Laceration without foreign body of scalp, initial encounter (principal); W18.30XA Fall on same level, unspecified, initial encounter; Z23 Encounter for immunization
CPT/HCPCS: 12001; 90471; 90715; 99283

== ENCOUNTER 2025-04-03 08:48 | Outpatient (CLI) | payer MEDICARE, SELFPAY ==
--- OUTSIDE RECORDS SUMMARY | 2023-11-02 05:45 | XMS_ITS ---
Author Organization [facility] Address [address] [facility] [address] [facility] [facility] [address] [place] [address] [id number] Care Team Providers Care Investor Relations Associate Name Role Phone Svetlana Mayfield Primary Care Provider [phone] RuizTodd roda Unavailable [phone] Allergies Allergen (clinical drug ingredient) Drug/Non Drug Allergy documented on EMR Reaction Allergy Type Onset Date Status azithromycin Zithromax Z-Lorenzo diarrhea Drug Allergy Active Substance with penicillin structure and antibacterial mechanism of action (substance) Penicillins Unknown Drug Allergy Active Results Component Value Reference Range Notes CBC Venipuncture (in house) Reviewed date:11/02/2023 12:38:24 PM Interpretation: Performing Lab: Notes/Report: wbc 4.6 3.5 - 10 lymph 29.0 15 - 50 mid 6.0 2 - 15 gran 65.0 35 - 80 rbc 4.79 3.5 - 5.5 hgb 14.3 11.5 - 16.5 hct 44.3 35 - 55 mcv 92.5 75 - 100 mch 30.0 25 - 35 mchc 32.4 31 - 38 platlet 232 100 - 400 P-Vitamin B12 Reviewed date:11/06/2023 09:26:41 AM Interpretation:338 Performing Lab: Notes/Report: Test performed by [facility] [address] [place], [place] [address] , [address], [place] [address] Geo Gauthier MD, Nailing Machine Feeder CLIA: [id number] Vitamin B12 093 082-3785 pg/mL P-Comprehensive Metabolic Pa gretel (CMP) Reviewed date:11/06/2023 09:26:41 AM Interpretation: Normal Performing Lab: Notes/Report: Test performed by [facility] [address] [place] [address] , [address], [place] [address] Geo Gauthier MD, Nailing Machine Feeder CLIA: [id number] Sodium 143 135-145 mEq/L Potassium 3.9 3.5-5.3 mEq/L Chloride 105 97-108 mEq/L CO2 24 22-32 mEq/L Glucose 80 65-99 mg/dL BUN 13 8-23 mg/dL Creatinine 0.72 0.50-1.00 mg/dL Calcium 9.4 8.6-10.4 mg/dL eGFR by Creatinine 95 >59 mL/min/1.73m2 Protein 6.2 6.0-8.3 g/dL Albumin 4.0 3.5-5.3 g/dL Alkaline Phosphatase 106 35-121 IU/L ALT (SGPT) 29 <5-47 IU/L AST (SGOT) 38 <5-40 IU/L Bilirubin, Total 0.7 <0.2-1.2 mg/dL A/G Ratio 1.8 1.1-2.5 mg/dL P-Folate Reviewed date:11/06/2023 09:26:41 AM Interpretation:<2 Performing Lab: Notes/Report: Test performed by [facility] [address] [place] [address] , [place] [address] eGo Gauthier MD, Nailing Machine Feeder CLIA: [id number] Folate <2 >4.59 ng/mL P-T4 Free (thyroxine) Reviewed date:11/06/2023 09:26:41 AM Interpretation: Normal Performing Lab: Notes/Report: Test performed by [facility] [address] [place] [address] , [address], [place] [id number] Geo Gauthier MD, Nailing Machine Feeder CLIA: [id number] Thyroxine Free (free T4) 1.26 0.86-1.76 ng/dL P-Lipid Panel Reviewed date:11/06/2023 09:26:41 AM Interpretation: Normal Performing Lab: Notes/Report: Test performed by [facility] [address] [place] [address] , [address], [place] [address] Geo Gauthier MD, Nailing Machine Feeder CLIA: [id number] Cholesterol 176 <200 mg/dL Triglycerides 66 <150 mg/dL HDL Cholesterol 55 >39 mg/dL Cholesterol / HDL Ratio 3.20 0.00-4.44 Ratio Non-HDL Cholesterol 121 <130 mg/dL LDL Cholesterol (Calculation) 108 <130 mg/dL LDL Cholesterol Levels* Less than 100 mg/dL Optimal 100 to 129 mg/dL Near Optimal/ Above Optimal 130 to 159 mg/dL Borderline High 160 to 189 mg/dL High 190 mg/dL and above Very High * Categories as recommended by the 2004 ATPIII guidelines LDL/HDL Ratio 2.0 <3.3 Ratio LDL Cholesterol Patient History Test Date: 06/16/2023 LDL Results: 125 Units: mg/dL % Change: - Test Date: 11/02/2023 LDL Results: 108 Units: mg/dL % Change: -13% P-TSH Reviewed date:11/06/2023 09:26:41 AM Interpretation: Normal Performing Lab: Notes/Report: Test performed by [facility], [address] , [address], [place] [address] Geo Gauthier MD, Nailing Machine Feeder CLIA: [id number] TSH 1.64 0.43-5.25 mU/L P-Vitamin D 25-Hydroxy Reviewed date:11/06/2023 09:26:41 AM Interpretation:24.7 Performing Lab: Notes/Report: Test performed by [facility], [facility] [address] [place] [address] , [address], [place] [address] Geo Gauthier MD, Nailing Machine Feeder CLIA: [id number] Vitamin D 25-Hydroxy 24.7 30.0-100.0 ng/mL Interpretation of Vitamin D 25 OH: < 20 ng/mL - Deficiency 20 - 29 ng/mL - Insufficiency 30 - 100 ng/mL - Sufficiency > 100 ng/mL - Super-therapeutic- toxicity may occur above this level. Clinical correlation required. P-Vitamin B1 (Thiamine), Ser um/Plasma, LC/MS/MS Reviewed date:11/06/2023 09:26:41 AM Interpretation: Normal Performing Lab: Notes/Report: Vitamin B1 (Thiamine), Serum/Plasma, LC/MS/MS 12 4-15 nmol/L INTERPRETIVE DATA: Vitamin B1, Plasma Thiamine (vitamin B1) is reported. However, thiamine diphosphate (TDP), the biologically active form of thiamine, is not found in measurable concentrations in plasma, and is best determined in whole blood specimens. Plasma thiamine concentration reflects recent intake rather than body stores. This test was developed and its performance characteristics determined by [facility]. It has not been cleared or approved by the [place] Food and Drug Administration. This test was performed in a CLIA certified laboratory and is intended for clinical purposes. Performed By: [facility] [address] [place] [id number] Nailing Machine Feeder: Humberto Ovalles MD, PhD CLIA Number: [id number] REASON FOR VISIT f/u from fall, needs labs Medications Medication SIG (Take, Route, Frequency, Duration) Notes Start Date End Date Status Metaxalone 800 MG 1 tab(s) orally 3 ti mes a day, prn 07/13/2022 Not-Taking Mupirocin 2 % 1 savannah applied topica lly once daily 06/08/2022 Not-Taking Pregabalin 100 MG 1 cap(s) orally 3 ti mes a day; Duration: 90 days 09/21/2022 Not-Sekou ing DULoxetine HCl 60 MG 1 cap(s) orally onc e a day; Duration: 90 days Not-Takin g Promethazine-DM 6.25-15 MG/5ML 5 ml orally every 6 hours, prn 11/18/2020 Not-Taking ProAir Digihaler 108 (90 Base) MCG/ACT 1-2 puff(s) inhaled 4 times a day, prn 04/03/2014 Not-Taking Levothyroxine Sodium 50 MCG 1 tab(s) orally once a day; Duration: 90 Not-Taking Advil 200 MG 1 tab(s) orally ever y 6 hours Not-Taking Vitamin D3 125 MCG (5000 UT) 1 cap(s) orally once a day 08/01/2019 Not-Taking Prolia 60 MG/ML as directed subcutaneously every 6 months 06/04/2020 Not-Taking Promethazine HCl 25 mg TAKE ONE TABLET B Y MOUTH EVERY 6 HOURS NEEDED FOR NAUSEA AND VOMITING; Duration: 8 Active B-12 1000 MCG 1 tab(s) orally once a day 08/01/2019 Active Losartan Potassium-HCTZ 100-25 MG 0.5 tab orally once a day; Duration: 90 days Not-Takin g Sertraline HCl 50 MG 1 tab(s) orally onc e a day Not-Taking Folic Acid 800 MCG 1 tablet Orally Once a day Active Multivitamin - as directed Orally Active Calcium 600 MG 1 tablet with meals Orally Twice a day Active Zegerid 20-1100 MG 1 capsule on an empt y stomach Orally Once a day; Duration: 30 day(s) Active Omeprazole 20 MG 1 cap(s) Orally Two times a day; Duration: 90 days 06/16/2023 Active Potassium Chloride ER 10 MEQ 1 capsule with food Orally Twice a day; Duration: 30 day(s) 06/22/2023 Active Vital Signs Blood pressure systolic 122 mm Hg 11/02/19 24 Blood pressure diastolic 78 mm Hg 024 Heart Rate 94 /min 11/02/2023 Height 64.50 in 11/02/2023 Weight 179 lbs 11/02/2023 BMI 30.25 kg/m2 11/02/2023 Encounters Encounter Location Date Provider Diagnosis [facility] [address] [facility] [address] Horta [phone] 11/02/2023 Ольга Warren S/P gastric sleeve procedure Z90.3 ; Fibromyalgia M79.7 ; Essential (primary) hypertension I10 ; Vitamin D deficiency E55.9 ; Acquired hypothyroidism E03.9 ; Vitamin B 12 deficiency E53.8 ; Chronic GERD K21.9 ; Vitamin B1 deficiency E51.9 ; Hypocalcemia E83.51 and Folic acid deficiency E53.8 Assessments Encounter Date Diagnosis (ICD Code) Assessment Notes Treatment Notes Treatment Clinical Notes Section Notes 11/02/2023 S/P gastric sleeve procedure (ICD-10 - Z90.3) 11/02/2023 Fibromyalgia (ICD-10 - M79.7) 11/02/2023 Essential (primary) hypertension (ICD-10 - I10) 11/02/2023 Vitamin D deficiency (ICD-10 - E55.9) 11/02/2023 Acquired hypothyroidism (ICD-10 - E03.9) 11/02/2023 Vitamin B 12 deficiency (ICD-10 - E53.8) 11/02/2023 Chronic GERD (ICD-10 - K21.9) 11/02/2023 Vitamin B1 deficiency (ICD-10 - E51.9) 11/02/2023 Hypocalcemia (ICD-10 - E83.51) 11/02/2023 Folic acid deficiency (ICD-10 - E53.8) Plan Of Treatment Next Appt Details Follow Up: via phone to repo rt test results, Reason: Provider Name:Ольгаantonio veronica, 05/21/2025 10:30:00 AM, [address] [facility] [address] [facility], [address] [place] [address], [phone], Progress Notes * JAE SLAUGHTERADOB:1960 ( 64 yo F)Acc No.[id number]:11/02/2023 Progress Notes Patient: FELICIA HAMILTON Provider: PRESTON Noel :1960 A ge:63 Y S ex:Female Date:11/02/2023 Address:[address] [place] [address] Pcp:Svetlana Mayfield Subjective: * Chief Complaints: * 1 . F/u from fall, needs labs. * HPI: D ermatology: 63 year old female presents with c/o laceration Pt is here to have 2 kayleen removed from the back of her head, she fell and hit the back of her head a few weeks ago and had kayleen placed in the ER. H PI: c/o Here for follow up on: Salvatore valera like all of her labs rechecked.. * ROS: C ARDIOLOGY: no D izziness. n o C hest pain. G ASTROENTEROLOGY: no N ausea. n o V omiting. U ROLOGY: no D ifficulty urinating. n o B lood in urine. * Medical History: H yperlipidemia, Hypertension, Dx: 2013, Vitamin D deficiency, Dx: 2013, Stage 4 metastatic melanoma, Fibromyalgia, Polyarthralgia, s/p Rheumatology evaluation 2017, J&J Covid Vaccine August. * Surgical History: a ppendectomy , T&A , melanoma left shoulder , tubal ligation , Gastric Sleeve 01/13/2023, EGD x 2 . * Hospitalization/Major Diagno stic Procedure: d ehydration , Clinic-sinus infection 03/2014. * Family History: F ather: . M other: . 1 son(s) , 1 daughter(s) . . Sister had Breast Cancer & Stomach cancer; Brother Non-hods lymphoma. * Social History: C URRENT TOBACCO USE S moking Status: Patient does NOT smoke. C affeine: no. Exercise: no. Home smoke detector use: yes. Marital Status: . New since last visit: pt is actively trying to loose weight, cutting out carbs. 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 Past smoking status: no. Alcohol: No. Sexually active: yes. * Medications: T aking Multivitamin - Tablet Chewable as directed Orally , Taking Zegerid 20-1100 MG Capsule 1 capsule on an empty stomach Orally Once a day , Taking Calcium 600 MG Tablet 1 tablet with meals Orally Twice a day , Taking Omeprazole 20 MG Capsule Delayed Release 1 cap(s) Orally Two times a day , Taking Potassium Chloride ER 10 MEQ Capsule Extended Release 1 capsule with food Orally Twice a day , Taking Folic Acid 800 MCG Tablet 1 tablet Orally Once a day , Taking B-12 1000 MCG Tablet 1 tab(s) orally once a day , Taking Promethazine HCl 25 mg Tablet TAKE ONE TABLET BY MOUTH EVERY 6 HOURS NEEDED FOR NAUSEA AND VOMITING , Not-Taking Sertraline HCl 50 MG Tablet 1 tab(s) orally once a day , Not-Taking Losartan Potassium-HCTZ 100-25 MG Tablet 0.5 tab orally once a day , Not-Taking Levothyroxine Sodium 50 MCG Tablet 1 tab(s) orally once a day , Not-Taking ProAir Digihaler 108 (90 Base) MCG/ACT Aerosol Powder Breath Activated 1-2 puff(s) inhaled 4 times a day, prn , Not-Taking Vitamin D3 125 MCG (5000 UT) Capsule 1 cap(s) orally once a day , Not-Taking Advil 200 MG Tablet 1 tab(s) orally every 6 hours , Not-Taking Prolia 60 MG/ML Solution Prefilled Syringe as directed subcutaneously every 6 months , Not-Taking Promethazine-DM 6.25-15 MG/5ML Syrup 5 ml orally every 6 hours, prn , Not-Taking DULoxetine HCl 60 MG Capsule Delayed Release Particles 1 cap(s) orally once a day , Not-Taking Mupirocin 2 % Ointment 1 savannah applied topically once daily , Not-Taking Metaxalone 800 MG Tablet 1 tab(s) orally 3 times a day, prn , Not-Taking Pregabalin 100 MG Capsule 1 cap(s) orally 3 times a day , Medication List reviewed and reconciled with the patient * Allergies: P enicillins, Zithromax Z-Lorenzo: diarrhea. Objective: * Vitals: W t:179, Temp:97.9, BP:122/78, HR:94, Nurse:dm, Ht: 64.50, BMI:30.25. * Examination: G eneral Examination: General Appearance: N AD. H EENT: u nremarkable.?Oral cavity: n o lesions, mucosa moist and WNL, no erythema. N cesario: s upple, no lymphadenopathy. C hest: n ormal shape and expansion. H eart: R SR. L ungs: c lear to auscultation. A bdomen: bowel sounds present, soft and nontender, no organomegaly or masses, no guarding or rigidity. N eurologic Exam: alert and oriented, normal cranial nerves II-XII sensory & motor WNL, no cerebellar signs, unsteady on Rhomberg. S kin: n ormal, no rash, 2 kayleen removed with staple removal tool from the back of the head with no difficulty. Peripheral pulses: n ormal (2+) bilaterally. E xtremities: n o leg edema. ? Assessment: * Assessment: 1. S /P gastric sleeve procedure - Z90.3 (Primary) 2 . F ibromyalgia - M79.7 3 . E ssential (primary) hypertension - I10 4 . V itamin D deficiency - E55.9 5 . A cquired hypothyroidism - E03.9 6 . Vitamin B 12 deficiency - E53.8 7 . C hronic GERD - K21.9 8 .?Vitamin B1 deficiency - E51.9 9 . H ypocalcemia - E83.51 1 0. F olic acid deficiency - E53.8 Plan: * Treatment: Value Reference Range A /G Ratio 1.8 1.1-2.5 - mg/dL * A lbumin 4.0 3.5-5.3 - g/dL * A lkaline Phosphatase 106 35-121 - IU/L * A LT (SGPT) 29 <5-47 - IU/L * A ST (SGOT) 38 <5-40 - IU/L * B ilirubin, Total 0.7 <0.2-1.2 - mg/dL * B UN 13 8-23 - mg/dL * C alcium 9.4 8.6-10.4 - mg/dL * C hloride 105 97-108 - mEq/L * C O2 24 22-32 - mEq/L * C reatinine 0.72 0.50-1.00 - mg/dL * G lucose 80 65-99 - mg/dL * P otassium 3.9 3.5-5.3 - mEq/L * S odium 143 135-145 - mEq/L * P rotein 6.2 6.0-8.3 - g/dL * e GFR by Creatinine 95 >59 - mL/min/1.73m2 * Maggie Jung 11/06/2023 9:26:3 2 AM >See phone encounter ?LAB: P-Lipid Panel (Collection Date & Time - 11/02/2023 09:31 AM)?Normal* Value Reference Range C holesterol / HDL Ratio 3.20 0.00-4.44 - Ratio * C holesterol 176 <200 - mg/dL * H DL Cholesterol 55 >39 - mg/dL * L DL Cholesterol (Calculation) 108 <130 - mg/d L * L DL/HDL Ratio 2.0 <3.3 - Ratio * N on-HDL Cholesterol 121 <130 - mg/dL * T riglycerides 66 <150 - mg/dL * Maggie Jung 11/06/2023 9:26:3 2 AM >See phone encounter 2.?Essential (primary) hypertension?LAB: CBC Venipuncture (in house) (Collection Date & Time - 11/02/2023)* Value Reference Range w bc 4.6 3.5 - 10 * l ymph 29.0 15 - 50 * m id 6.0 2 - 15 * g ran 65.0 35 - 80 * r bc 4.79 3.5 - 5.5 * h gb 14.3 11.5 - 16.5 * h ct 44.3 35 - 55 * m cv 92.5 75 - 100 * m ch 30.0 25 - 35 * m chc 32.4 31 - 38 * p latlet 232 100 - 400 * Samaria Bryant 11/02/2023 1 1:03:09 AM > 3.?Vitamin D deficiency?LAB: P-Vitamin D 25-Hydroxy (Collection Date & Time - 11/02/2023 09:31 AM)? 24.7* Value Reference Range V itamin D 25-Hydroxy 24.7 L 30.0-100.0 - ng/mL * Maggie Jung 11/06/2023 9:26:3 2 AM >See phone encounter 4.?Acquired hypothyroidism?LAB: P-T4 Free (thyroxine) (Collection Date & Time - 11/02/2023 09:31 AM)? Normal* Value Reference Range T hyroxine Free (free T4) 1.26 0.86-1.76 - ng/d L * Maggie Jung 11/06/2023 9:26:3 2 AM >See phone encounter ?LAB: P-TSH (Collection Date & Time - 11/02/2023 09:31 AM)?Normal* Value Reference Range T SH 1.64 0.43-5.25 - mU/L * Maggie Jung 11/06/2023 9:26:3 2 AM >See phone encounter 5.?Vitamin B 12 deficiency?LAB: P-Vitamin B12 (Collection Date & Time - 11/02/2023 09:31 AM)?338* Value Reference Range V itamin B12 078 564-3037 - pg/mL * Maggie Jung 11/06/2023 9:26:3 2 AM >See phone encounter 6.?Vitamin B1 deficiency?LAB: P-Vitamin B1 (Thiamine), Serum/Plasma, LC/MS/MS (Collection Date & Time - 11/02/2023 09:31AM)?Normal* Value Reference Range V itamin B1 (Thiamine), Serum/Plasma, LC/MS/MS 12 4-15 - nmol/L * Maggie Jung 11/06/2023 9:26:3 2 AM >See phone encounter 7.?Folic acid deficiency?LAB: P-Folate (Collection Date & Time - 11/02/2023 09:31 AM)?<2* Value Reference Range F olate <2 L >4.59 - ng/mL * Maggie Jung 11/06/2023 9:26:3 2 AM >See phone encounter * Procedure Codes: 8 5025 CBC WITH AUTO DIFF, 44151 VENIPUNCT, ROUTINE* * Follow Up: v ia phone to report test results * Images: Billing Information: * Visit Code: 06215 Office Visit, Est Pt., Level 4. * Procedure Codes: 47326 CBC WITH AUTO DIFF. 50750 VENIPUNCT, ROUTINE*. * Electronic signature of PRESTON Cui on 04/03/2025 at 08:54 AM EDT Sign off status: Pending * Provider: PRESTON Noel Date: 0 11/02/2023 Generated for Printi ng/Faxing/eTransmitting on: 1 08:54 AM EDT History and Physical Notes * HPI (History of Present Illness) Category Sub-Category Detail Notes Category Not es Dermatology laceration Pt is here to dunne ve 2 kayleen removed from the back of her head, she fell and hit the back of her head a few weeks ago and had kayleen placed in the ER HPI Here for follow up on: Would fab delarosa all of her labs rechecked. Examination Category Sub-Category Detail Notes Category Not es General Examination HEENT: unremarkable Heart: RSR Lungs: clear to auscultatio n Abdomen: bowel sounds present , soft and nontender, no organomegaly or masses, no guarding or rigidity Extremities: no leg edema General Appearance: NAD Skin: normal, no rash, 2 s taples removed with staple removal tool from the back of the head with no difficulty Neurologic Exam: alert and oriented, normal cranial nerves II-XII sensory & motor WNL, no cerebellar signs, unsteady on Rhomberg Neck: supple, no lymphaden opathy Oral cavity: no lesions, mucosa m oist and WNL, no erythema Peripheral pulses: normal (2+) bilatera lly Chest: normal shape and exp ansion
--- OUTSIDE RECORDS SUMMARY | 2024-03-01 05:15 | XMS_ITS ---
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 Name Role Phone Svetlana Mayfield Primary Care Provider Ольга Warren Unavailable [phone] Allergies Allergen (clinical drug ingredient) Drug/Non Drug Allergy documented on EMR Reaction Allergy Type Onset Date Status azithromycin Zithromax Z-Lorenzo diarrhea Drug Allergy Active Substance with penicillin structure and antibacterial mechanism of action (substance) Penicillins Unknown Drug Allergy Active Results Component Value Reference Range Notes CBC Fingerstick (in house) Reviewed date:03/01/2024 12:30:21 PM Interpretation: Performing Lab: Notes/Report: wbc 7.4 3.5 - 10 lym 36.3% 15 - 50 mid 6.8% 2 - 15 gran 56.9% 35 - 80 rbc 5.21 3.5 - 5.5 hgb 15.3 11.5 - 16.5 hct 4.72 35 - 55 mcv 90.6 75 - 100 mch 29.4 25 - 35 mchc 32.5 31 - 38 plat 155 100 - 400 Covid test (in house) Reviewed date:03/01/2024 12:30:32 PM Interpretation: Performing Lab: Notes/Report: Result: Neg REASON FOR VISIT congestion Medications Medication SIG (Take, Route, Frequency, Duration) Notes Start Date End Date Status Folic Acid 1 MG 1 tablet Orally Once a day 11/15/2023 Active Omeprazole 20 MG 1 cap(s) Orally Two times a day; Duration: 90 days 06/16/2023 Active Potassium Chloride ER 10 MEQ 1 capsule with food Orally Twice a day; Duration: 30 day(s) 06/22/2023 Active B-12 1000 MCG 1 tab(s) orally once a day 08/01/2019 Active Pregabalin 50 MG 1 capsule Orally Two times a day; Duration: 30 day(s) 11/02/2023 Active Calcium 600 MG 1 tablet with meals Orally Twice a day Active Multivitamin - as directed Orally Active Zegerid 20-1100 MG 1 capsule on an empt y stomach Orally Once a day; Duration: 30 day(s) Active Bromfed DM 2-30-10 MG/5ML 5-10 mL Orally four times a day, prn 03/01/2024 Active Vital Signs Blood pressure systolic 132 mm Hg 03/01/20 24 Blood pressure diastolic 82 mm Hg 024 Heart Rate 72 /min 03/01/2024 Height 64.50 in 03/01/2024 Weight 160 lbs 03/01/2024 BMI 27.04 kg/m2 03/01/2024 Encounters Encounter Location Date Provider Diagnosis [facility] [address] [facility] 36 [facility] [address] [place], [place] [id number] 03/01/2024 Ольга Warren Acute URI J06.9 Assessments Encounter Date Diagnosis (ICD Code) Assessment Notes Treatment Notes Treatment Clinical Notes Section Notes 03/01/2024 Acute URI (ICD-10 - J06.9) Plan Of Treatment Medication Medication Name Sig Start Date Stop Date Notes Bromfed DM 2-30-10 MG/5ML 5-10 mL Orally four times a day, prn 03/01/2024 Next Appt Details Follow Up: prn, Reason: Provider Name:Ольга Fonseca y, 05/21/2025 10:30:00 AM, [address] [facility] 36 [facility], [address], [place], [place], [id number], Progress Notes * JAE SLAUGHTERJOÃOB:1960 ( 64 yo F)Acc No.[id number]:03/01/2024 Progress Notes Patient: FELICIA HAMILTON Provider: PRESTON Noel :1960 A ge:63 Y S ex:Female Date:03/01/2024 Address:[address] [place] [address] Pcp:Svetlana Mayfield Subjective: * Chief Complaints: * 1 . Congestion. * HPI: E NT/respiratory: 63 year old female presents with c/o cough P t complains of greenish yellow sputum production cough for 3 days. Associated with nasal congestion. Denies : Fever. D enies : body aches. * ROS: D ERMATOLOGY: no R deniz. n o H rihc. G ASTROENTEROLOGY: no N ausea. n o V omiting. U ROLOGY: no D ifficulty urinating. n o B lood in urine. * Medical History: H yperlipidemia, Hypertension, Dx: 2013, Vitamin D deficiency, Dx: 2013, Stage 4 metastatic melanoma, Fibromyalgia, Polyarthralgia, s/p Rheumatology evaluation 2017, J&J Covid Vaccine August. * Surgical History: A ppendectomy , Tonsilectomy, Adenoidectomy , LT Should Melanoma , Tubal Ligation , Gastric Sleeve 01/13/2023, EGD x 2 . * Hospitalization/Major Diagno stic Procedure: D ehydration , Sinus Infection- [facility] 03/2014. * Family History: F ather: . [...] loose weight, cutting out carbs. 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 Past smoking status: no. Alcohol: No. Sexually active: yes. * Medications: T aking Pregabalin 50 MG Capsule 1 capsule Orally Two times a day , Taking Multivitamin - Tablet Chewable as directed Orally [...] food Orally Twice a day , Taking B-12 1000 MCG Tablet 1 tab(s) orally once a day , Taking Folic Acid 1 MG Tablet 1 tablet Orally Once a day , Discontinued Promethazine HCl 25 mg Tablet TAKE ONE TABLET BY MOUTH EVERY 6 HOURS NEEDED FOR NAUSEA AND VOMITING , Discontinued Losartan Potassium-HCTZ 100-25 MG Tablet 0.5 tab orally once a day , Discontinued Sertraline HCl 50 MG Tablet 1 tab(s) orally once a day , Discontinued Levothyroxine Sodium 50 MCG Tablet 1 tab(s) orally once a day , Discontinued ProAir Digihaler 108 (90 Base) MCG/ACT Aerosol Powder Breath Activated 1-2 puff(s) inhaled 4 times a day, prn , Discontinued Vitamin D3 125 MCG (5000 UT) Capsule 1 cap(s) orally once a day , Discontinued Advil 200 MG Tablet 1 tab(s) orally every 6 hours , Discontinued Prolia 60 MG/ML Solution Prefilled Syringe as directed subcutaneously every 6 months , Discontinued Promethazine-DM 6.25-15 MG/5ML Syrup 5 ml orally every 6 hours, prn , Discontinued DULoxetine HCl 60 MG Capsule Delayed Release Particles 1 cap(s) orally once a day , Discontinued Mupirocin 2 % Ointment 1 savannah applied topically once daily , Discontinued Metaxalone 800 MG Tablet 1 tab(s) orally 3 times a day, prn , Discontinued Pregabalin 100 MG Capsule 1 cap(s) orally 3 times a day , Medication List reviewed and reconciled with the patient * Allergies: P enicillins, Zithromax Z-Lorenzo: diarrhea. Objective: * Vitals: W t:160, Temp:98.0, BP:132/82, HR:72, O2 Sat:98% on RA, Nurse:maribell, Ht: 64.50, BMI:27.04. * Examination: E NT/Respiratory: General Appearance: N AD. E ars: a uditory canals normal bilaterally, TM's WNL. N ose : turbinates red, congested. S inuses : tender maxillary sinuses bilaterally. O ral cavity : erythema without exudate on pharynx. N cesario : n o cervical lymphadenopathy. H eart : R RR, normal S1 S2, no murmurs. L ungs: c lear to auscultation bilaterally. Assessment: * Assessment: 1. Rossana rodriguez URI - J06.9 (Primary) Plan: * Treatment: Value Reference Range w bc 7.4 3.5 - 10 * l ym 36.3% 15 - 50 * m id 6.8% 2 - 15 * g ran 56.9% 35 - 80 * r bc 5.21 3.5 - 5.5 * h gb 15.3 11.5 - 16.5 * h ct 4.72 35 - 55 * m cv 90.6 75 - 100 * m ch 29.4 25 - 35 * m chc 32.5 31 - 38 * p lat 155 100 - 400 * Kun Wellsira 03/01/2024 9:26:08 AM > , Provider reviewed results while patient in office.BrianaОльга Breanna 03/01/2024 12:30:19 PM > ?LAB: Covid test (in house) (Collection Date & Time - 03/01/2024)* Value Reference Range R esult: Neg * RussellMelody 03/01/2024 9:35:29 AM > , Provider reviewed results while patient in office.Ольга Warren 03/01/2024 12:30:29 PM > * Procedure Codes: 9 [address] [place], [address] CAPILLARY BLOOD DRAW, 33538 CBC WITH AUTO DIFF, 35672 COVID TEST IN HOUSE, Modifiers: QW * Follow Up: p rn * Images: Billing Information: * Visit Code: 10049 Office Visit, Est Pt., Level 3. * Procedure Codes: [address] [place] [address] CAPILLARY BLOOD DRAW. 25186 CBC WITH AUTO DIFF. 67131 COVID TEST IN HOUSE. Modifiers: QW * Electronic signature of PRESTON Cui on 04/03/2025 at 08:53 AM EDT Sign off status: Pending * Provider: PRESTON Noel Date: 0 03/01/2024 Generated for Brea ng/Facecilg/eTransmitting on: 1 08:53 AM EDT History and Physical Notes * HPI (History of Present Illness) Category Sub-Category Detail Notes Category Not es ENT/respiratory cough Pt complains of greenish yellow sputum production cough for 3 days. Associated with nasal congestion Fever body aches Examination Category Sub-Category Detail Notes Category Not es ENT/Respiratory Oral cavity : erythema without exudate on pharynx Sinuses : tender maxillary sin uses bilaterally Ears: auditory canals norm al bilaterally, TM's WNL Neck : no cervical lymphade nopathy Heart : RRR, normal S1 S2, n o murmurs Lungs: clear to auscultatio n bilaterally General Appearance: NAD Nose : turbinates red, zulema ested
--- OUTSIDE RECORDS SUMMARY | 2025-03-05 10:05 | XMS_ITS | Encounter Summary ---
Author Organization [facility] Address [address] [id number] Care Team Providers Care Pocket Machine Operator Name Role Phone Antonio Odell MD Primary Care Provider + [phone] Kendell Merchant MD Unavailable Reason for Referral * Imaging (Routine) - Closed Specialty Diagnoses / Procedures Referred By Zackery connolly Referred To Contact Radiology Diagnoses Malignant melanoma, unspecified site (CMS/HCC) Procedures CT Abdomen Pelvis wo IV Contrast Barbie Zendejas APRN [address] [phone] Phone: tel: fax: Referral ID Status Reason Start Date Expiration Date Visits Re quested Visits Authorized [id number] Closed 01/20/2025 07/22/2026 1 1 * Imaging (Routine) - Closed Specialty Diagnoses / Procedures Referred By Zackery connolly Referred To Contact Radiology Diagnoses Malignant melanoma, unspecified site (CMS/HCC) Procedures CT Chest wo IV Contrast Barbie Zendejas APRN [address] [facility] [address] [place] [address] Phone: tel: fax: Referral ID Status Reason Start Date Expiration Date Visits Re quested Visits Authorized [id number] Closed 01/20/2025 07/22/2026 1 1 Reason for Visit * Imaging (Routine) - Closed Specialty Diagnoses / Procedures Referred By Zackery connolly Referred To Contact Radiology Diagnoses Malignant melanoma, unspecified site (CMS/HCC) Procedures CT Abdomen Pelvis wo IV Contrast Barbie Zendejas APRN [address] [place] [address] Phone: tel: fax: Referral ID Status Reason Start Date Expiration Date Visits Re quested Visits Authorized [id number] Closed 01/20/2025 07/22/2026 1 1 Encounter Details Date Type Department Care Team (Latest Contact Info) Description 03/05/2025 10:05 AM EDT - 03/05/2025 10:49 AM EDT Hospital Encounter [facility] [address] [place] [address] Malignant melanoma, unspecified site (CMS/HCC) Discharge Disposition: Home or Self Care Social History Tobacco Use Types Packs/Day Years Used Date Smoking Tobacco: Never Smokeless Tobacco: Never Alcohol Use Standard Drinks/Week Comments Not Currently 0 (1 standard drink = 0.6 oz pur e alcohol) PHQ-2 Answer Date Recorded Patient Health Questionnaire-2 Score 0 03/05/2025 CAGE ASSESSMENT Answer Date Recorded Cage unable to access Not on file 02/14/2023 Cage max number of drinks Not on file 2022 Cage Beverages a week Not on file 02/14/2023 Have you ever felt you should CUT down on your d rinking? 0 02/14/2023 Have you been ANNOYED by people criticizing your drinking? 0 02/14/2023 Have you felt GUILTY about your drinking? 0 02/14/2023 Have you had a drink first t marivel in the morning (EYE-BAR[employer]) to steady your nerves or to get rid of a hangover? 0 02/14/2023 CAGE Questionnaire Score 0 023 PHQ-2A Answer Date Recorded Depression Risk 0 05/19/2022 Comments No Sex and Gender Information Value Date Recorded Sex Assigned at Not on file Legal Sex Female 5:57 PM EDT Gender Identity Not on file Sexual Orientation Not on file documented as of this encounter Functional Status * Over the past 2 weeks, how often have you been bothered by any of the following problems? Question Answer Date of Assessment Author Little interest or pleasure in doing things Not at all 03/05/2025 2:09 PM EDT Carrie Gomez Feeling down, depressed, or hopeless Not at all 03/05/2025 2:09 PM EDT Carrie Gomez Patient Health Questionnaire -2 Score 0 03/05/2025 2:09 PM EDT Carrie Gomez * Question Answer Date of Assessment Author Thoughts that you would be b charly off or hurting yourself in some way Not at all 03/05/2025 2:09 PM EDT Carrie Gomez documented as of this encounter Medications at Time of Discharge acetaminophen (Tylenol) 500 MG tablet Take 2 tablets by mouth every 6 hours as needed for pain. 100 tablet 1 09/19/2024 brompheniramine- pseudoephedrine- DM 30-2-10 MG/5ML syrup TAKE 1 TO 2 TEASPOON(S)FUL (5 TO 10 ML) BY MOUTH FOUR TIMES DAILY NEEDED 03/01/2024 Ca Phosphate-Cholec alciferol (Calcium 500 + D3) 250-12.5 MG-MCG chewable tablet Chew 1 Chewable tablet 1 (one) time each day. clobetasol (Temovate) 0.05 % cream apply a thin layer topically TO THE affected area(s) TWICE DAILY ON monday, monday, AND monday no more THAN 14 DAYS a MONTH 01/15/2024 folic acid (Folvite) 1 MG tablet Take 1 tablet (1,000 mcg) by mouth 1 (one) time each day. 11/20/2023 ibuprofen 200 MG tablet Take 1 tablet by mouth every 6 hours as needed for mild pain. 100 tablet 1 09/19/2024 levothyroxine (Synthroid, Levoxyl) 50 MCG tablet Take 1 tablet (50 mcg) by mouth 1 (one) time each day before breakfast. 11/14/2016 losartan-hydroCH LOROthiazide (Hyzaar) 100-25 MG tablet Take 1 tablet by mouth 1 (one) time each day. TAKING HALF A PILL 11/14/2016 Multiple Vitamins-Iron (DAILY MULTIVITAMINS/IR ON PO) Take 1 Chewable tablet by mouth 1 (one) time each day. Multiple Vitamins-Mineral s (MULTIVITAMIN WOMEN 50+ PO) Take by mouth in the evening. omega-3 (Fish Oil) 1000 MG capsule Take 1 capsule (1,000 mg) by mouth daily. omeprazole (PriLOSEC) [address] capsule Take 1 capsule (20 mg) by mouth 2 (two) times a day. Do not crush or chew. 30 capsule 1 04/14/2023 oxyCODONE (Roxicodone) 5 MG immediate release tablet Take 1 tablet by mouth every 6 hours as needed for severe pain. 25 tablet 09/19/2024 potassium chloride ER (Micro-K) 10 MEQ ER capsule TAKE ONE CAPSULE BY MOUTH TWICE DAILY WITH FOOD 06/22/2023 pregabalin (Lyrica) 100 MG capsule Take 1 capsule (100 mg) by mouth 2 (two) times a day if needed. pregabalin (Lyrica) 50 MG capsule Take 1 capsule (50 mg) by mouth every night. 12/11/2023 promethazine (Phenergan) 25 MG tablet Take 1 tablet (25 mg) by mouth every 6 (six) hours if needed for nausea or vomiting. 30 tablet 2 05/02/2023 sertraline (Zoloft) 50 MG tablet Take 1 tablet (50 mg) by mouth 1 (one) time each day. 06/28/2017 documented as of this encounter Miscellaneous Notes * Rita Topete - 03/05/2025 10:06 AM EDT Images from the original note were not included. 1639 Caring for Yourself after Contrast Imaging If you had ORAL contrast: ? You can go back to your normal diet and activities as tolerated. ? Drink plenty of fluids, unless told otherwise. If you had IV contrast: ? You can go back to your normal diet and activities as tolerated. ? Drink plenty of fluids, unless told otherwise. ? Leave a bandage on the site for 30 minutes (where the IV was inserted or blood was drawn). If you had Intravesical (bladder) contrast: ? Return to normal diet and activity. What you need to know about delayed reaction to IV contrast What is IV Contrast? ? Contrast is a dye that is put into your body through an IV. ? It is used for imaging scans such as CT scans and MRIs. ? The contrast makes blood vessels, organs and other parts of your body show up better on the scan. What do I need to do after IV contrast? ? Drink lots of fluids. This will help flush the contrast out of your system. ? Drink 2-3 extra glasses or bottles of water within 4 hours of your scan. What is a contrast reaction? ? A contrast reaction is a bad side effect from the contrast dye. ? It is rare but it does happen. ? They can be mild - such as sneezing, itching, or hives. ? They can be severe - such as trouble breathing, throat swelling, and irregular heart beat. When do these reactions happen? ? They often happen right after the contrast is injected. ? Some happen hours after going home. Go to the nearest Emergency Department right away if you have any of these symptoms after you leavethe clinic or hospital. ? Sneezing ? Itching in your mouth, throat, eyes, ears, or skin ? Rash or hives ? Throwing up or stomach sickness ? High heart rate or ?racing? of your heart ? Feeling dizzy or woozy ? Feeling short of breath or like you can?t take a deep breath ? Feeling very anxious for no other reason It is very important that these reactions be treated. Tell the doctor or nurse that you are having a reaction to IV contrast dye. Do not ignore any sign of a reaction! All reactions must be assessed by a doctor. Call 911 if you are alone and your reaction is more than mild sneezing or itching. If you have a mild reaction, call to speak with a Radiologist, explain that you havehad a contrast reaction, as this needs to be added to your medical record. documented in this encounter Plan of Treatment Upcoming Encounters Date Type Department Care Team (Late st Contact Info) Description 03/12/2026 9:00 AM EDT Appointment [facility] Radiology [address] [place] [address] 03/12/2026 10:20 AM EDT Appointment [facility] [address] [place] [address] 03/12/2026 1:30 PM EDT Office Visit [facility] [address] [place] [address] Barbie Zendejas, BLANKET CUTTING MACHINE OPERATOR [address] [facility] [address] [place] [address] documented as of this encounter Goals Goal Patient Goal Type Associated Problems Recent Progress Patient-Stated? Author LTG OT Impaired Function: Patient will decrease QUICK DASH score to 20% or less by discharge. Occupational Therapy Improving(01/2025 4:20 PM EDT) No Lisa Cueva OT LTG: Pt to rate pain using the numeric pain rating scale of at most 2/10 with cooking tasks by discharge. Occupational Therapy Improving( 8:01 AM EDT) No Lisa Cueva documented as of this encounter Procedures Procedure Name Priority Date/Time Associated Diagnosis Comments CT CHEST WO IV CONTRAST Routine 03/05/2025 10:35 AM EDT Malignant melanoma, unspecified site (CMS/HCC) CT ABDOMEN PELVIS WO IV CONTRAST Routine 03/05/2025 10:35 AM EDT Malignant melanoma, unspecified site (CMS/HCC) documented in this encounter Results * CT Abdomen Pelvis wo IV Contrast (03/05/2025 10:35 AM EDT) Anatomical Region Laterality Modality Abdomen, Pelvis Computed Tomogra phy Impressions 03/05/2025 12:35 PM EDT 1. Limited noncontrast study. No convincing evidence of metastases in the abdomen or pelvis. CRITICAL RESULT: No. COMMUNICATION: Per this written report. Drafted by Viet Rao MD on 03/05/2025 12:33 PM Final report signed by Viet Rao MD on 03/05/2025 12:35 PM Narrative 03/05/2025 12:35 PM EDT CLINICAL INDICATION: melanoma surv TECHNIQUE: Multiple axial CT images were obtained from lung bases through pubic symphysis without the administration of IV contrast. Reformatted images in the coronal and sagittal planes were generated from the axial data set to facilitate diagnostic accuracy. Total DLP (Dose-Length Product): 655.89 mGy.cm. Please note: The reported value represents the total of one or more individual components during the CT acquisition on this date and at this time, and as such, the same value may appear in more than one CT report depending on the interpreting/reporting physicians. COMPARISON: Outside CT 02/09/2023 FINDINGS: Lower Chest: No suspicious findings. Analysis of the abdominopelvic viscera is limited by the absence of intravenous contrast material. Solid Abdominal Organs: Normal liver, no focal lesions. Normal gallbladder. No biliary obstruction. Normal pancreas, kidneys and adrenal glands. Stable low- density lesion in the spleen. 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 The large and small bowel appear normal in caliber. No evidence of inflammatory change. No suspicious peritoneal/mesenteric findings. Pelvic Viscera: No suspicious pelvic mass lesions. Lymph Nodes/Vasculature: No lymphadenopathy by CT size criteria. The aortoiliac vasculature is normal in caliber. Free Fluid: No ascites. Musculoskeletal and Body Wall: No aggressive or suspicious findings. Procedure Note Viet Rao MD - 03/05/2025 CLINICAL INDICATION: melanoma surv TECHNIQUE: Multiple axial CT images were obtained from lung bases through pubicsymphysis without the administration of IV contrast. Reformatted images inthe coronal and sagittal planes were generated from the axial data set tofacilitate diagnostic accuracy. Total DLP (Dose-Length Product): 655.89 mGy.cm. Please note: The reportedvalue represents the total of one or more individual components during theCT acquisition on this date and at this time, and as such, the same valuemay appear in more than one CT report depending on theinterpreting/reporting physicians. COMPARISON: Outside CT 02/09/2023 FINDINGS: Lower Chest: No suspicious findings. Analysis of the abdominopelvic viscera is limited by the absence ofintravenous contrast material. Solid Abdominal Organs: Normal liver, no focal lesions. Normalgallbladder. No biliary obstruction. Normal pancreas, kidneys and adrenalglands. Stable low-density lesion in the spleen. GI Tract/Mesentery/Peritoneum: Stable postsurgical changes from a sleevegastrectomy. The large and small bowel appear normal in caliber. Noevidence of inflammatory change. No suspicious peritoneal/mesentericfindings. Pelvic Viscera: No suspicious pelvic mass lesions. Lymph Nodes/Vasculature: No lymphadenopathy by CT size criteria. Theaortoiliac vasculature is normal in caliber. Free Fluid: No ascites. Musculoskeletal and Body Wall: No aggressive or suspicious findings. IMPRESSION: 1. Limited noncontrast study. No convincing evidence of metastases in theabdomen or pelvis. CRITICAL RESULT: No. COMMUNICATION: Per this written report. Drafted by Viet Rao MD on 03/05/2025 12:33 PM Final report signed by Viet Rao MD on 03/05/2025 12:35 PM Barbie Mota Cristiana BLANKET CUTTING MACHINE OPERATOR IMG CT PROCEDURES Final Resul t * CT Chest wo IV Contrast (03/05/2025 10:35 AM EDT) Anatomical Region Laterality Modality Chest Computed Tomogra phy Impressions 03/05/2025 11:[address] evidence of metastatic disease within the chest. CRITICAL RESULT: No. COMMUNICATION: Per this written report. By electronically signing this report, I, the attending physician, attest that I have personally reviewed the images/data for the above examination(s) and agree with the final edited report. Drafted by Milton Burton MD on 03/05/2025 11:03 AM Final report signed by Deann Mesa MD on 03/05/2025 11:37 AM Narrative 03/05/2025 11:37 AM EDT CLINICAL INDICATION: melanoma surv TECHNIQUE: Multiple CT helical images were obtained from thoracic inlet through upper abdomen without administration of IV contrast. The imaging protocol used in this examination was optimized to achieve diagnostic quality with the lowest possible radiation dose in accordance with the principles of ALARA (As Low As Reasonably Achievable). COMPARISON: 06/24/2022, May 22 FINDINGS: Mediastinum and Pleura: No mediastinal or hilar adenopathy. No pleural or pericardial effusion. Moderate coronary artery calcifications. Lungs: Stable partially calcified 5 mm solid nodule (series 3/image 53). Additional bilateral fully calcified granulomas. 2 mm nodule (medial left lower lobe on image 61 of series 3 stable since 2020, most likely benign. No new suspicious lung nodules are noted in interval. Upper Abdomen: Small fluid density splenic cyst/pseudocyst. Sleeve gastrectomy. Musculoskeletal: No suspicious lytic or sclerotic lesion. Multinodular thyroid. Procedure Note Deann Mesa MD - 03/05/2025 CLINICAL INDICATION: melanoma surv TECHNIQUE: Multiple CT helical images were obtained from thoracic inlet through upperabdomen without administration of IV contrast. The imaging protocol used in this examination was optimized to achievediagnostic quality with the lowest possible radiation dose in accordancewith the principles of ALARA (As Low As Reasonably Achievable). COMPARISON: 06/24/2022, May 22 FINDINGS: Mediastinum and Pleura: No mediastinal or hilar adenopathy. No pleural orpericardial effusion. Moderate coronary artery calcifications. Lungs: Stable partially calcified 5 mm solid nodule (series 3/image 53).Additional bilateral fully calcified granulomas. 2 mm nodule (medial leftlower lobe on image 61 of series 3 stable since 2020, most likely benign.No new suspicious lung nodules are noted in interval. Upper Abdomen: Small fluid density splenic cyst/pseudocyst. Sleevegastrectomy. Musculoskeletal: No suspicious lytic or sclerotic lesion. Multinodularthyroid. IMPRESSION: No CT evidence of metastatic disease within the chest. CRITICAL RESULT: No. COMMUNICATION: Per this written report. By electronically signing this report, I, the attending physician, attestthat I have personally reviewed the images/data for the aboveexamination(s) and agree with the final edited report. Drafted by Milton Burton MD on 03/05/2025 11:03 AM Final report signed by Deann Mesa MD on 03/05/2025 11:37 AM Barbie Zendejas APRN IMG CT PROCEDURES Final Resul t documented in this encounter Visit Diagnoses Diagnosis Malignant melanoma, unspecified site (CMS/HCC) documented in this encounter Administered Medications Inactive Administered Medications - up to 3 most recent administrations Medication Order MAR Action Action Date Dose Rate Site iohexol (OMNIPaque) 9 MG/ML oral contrast 500 mL 500 mL, Oral, Once in imaging, 1 dose, Starting on Mon03/05/25 at 1006, Until Mon03/05/25 at 1008, Routine, Imaging Protocol Orders Given 03/05/2025 10:08 AM EDT 500 mL documented in this encounter Additional Health Concerns Assessment Noted Time A fall risk assessment has been complete d for the patient 03/05/2025 2:09 PM EDT A Body Mass Index follow-up plan has been documented for the patient 01/21/2025 8:08 AM EDT documented as of this encounter Care Teams Pocket Machine Operator Relationship Specialty Start Date End Date Antonio Odell MD [address] [phone] PCP - General 10/16/20 Kendell Merchant MD [address] [place] [phone] Consulting Physician Medical Oncology 05/12/21 documented as of this encounter
--- OUTSIDE RECORDS SUMMARY | 2025-03-05 10:50 | XMS_ITS | Encounter Summary ---
Author Organization [facility] Address [address] [place] [address] Care Team Providers Care Insurance Agency Owner Name Role Phone Antonio Odell MD Primary Care Provider + [phone] Kendell Merchant MD Unavailable Reason for Referral * Imaging (Routine) - Closed Specialty Diagnoses / Procedures Referred By Zackery connolly Referred To Contact Radiology Diagnoses Malignant melanoma, unspecified site (CMS/HCC) Procedures MR Head w and wo IV Contrast Barbie Zendejas APRN [address] [address] Phone: tel: fax: Referral ID Status Reason Start Date Expiration Date Visits Re quested Visits Authorized [id number] Closed 01/20/2025 07/22/2026 1 1 Reason for Visit * Imaging (Routine) - Closed Specialty Diagnoses / Procedures Referred By Zackery connolly Referred To Contact Radiology Diagnoses Malignant melanoma, unspecified site (CMS/HCC) Procedures MR Head w and wo IV Contrast Barbie Zendejas APRN [address] [address] Phone: tel: fax: Referral ID Status Reason Start Date Expiration Date Visits Re quested Visits Authorized [id number] Closed 01/20/2025 07/22/2026 1 1 Encounter Details Date Type Department Care Team (Latest Contact Info) Description 03/05/2025 10:50 AM EDT - 03/05/2025 11:59 PM EDT Hospital Encounter [facility] Rad[facility] [address], [address] [place] [address] Malignant melanoma, unspecified site ([facility]/HCC) Discharge Disposition: Home or Self Care Social [...] drink first t marivel in the morning (EYE-SHEET METAL SMITH) to steady your nerves or to get [...] day. 06/28/2017 documented as of this encounter Plan of Treatment Upcoming Encounters Date Type Department Care Team (Late st Contact Info) Description 03/12/2026 9:00 AM EDT Appointment [facility] Radiology [address], [address] [place] [address] 03/12/2026 10:20 AM EDT Appointment [facility] [address] [place] [address] 03/12/2026 1:30 PM EDT Office Visit [facility] Multidisciplinary Oncology Clinic [address] [place] [address] Barbie Zendejas, COMPUTING TUTOR 800 [facility] [address] [place] [address] documented as of this encounter Goals Goal [...] Procedure Name Priority Date/Time Associated Diagnosis Comments MR HEAD W AND WO IV CONTRAST Routine 03/05/2025 12:37 PM EDT Malignant melanoma, unspecified site (CMS/HCC) documented in this encounter Results * MR Head w and wo IV Contrast (03/05/2025 12:37 PM EDT) Anatomical Region Laterality Modality Head Magnetic Resonan ce Impressions 03/05/2025 8:28 PM EDT Previously seen minimal enhancement in the right occipital lobe and right cingulate gyrus has resolved, compatible with history of treated metastases. No other significant change since the previous examination of June 24, 2022. No recurrence after left parietal craniotomy. No new metastasis. Flako Goodson M.D. This report has been electronically signed and verified by the Radiologist whose name is printed above. This report contains privileged and confidential information and is intended solely for the use of the individual or entity to which it is addressed. If you are not the intended recipient of this report, you are hereby notified that any copying, distribution, dissemination or action taken in relation to the contents of this report is strictly prohibited and may be unlawful. If you have received this report in error, please notify the sender immediately at [phone] and permanently delete the original report and destroy any copies or printouts. Narrative 03/05/2025 8:28 PM EDT [facility] - Phone Outpatient NAME: Dolores Weinstein DATE OF EXAM: 03/05/2025 Patient No: [id number] Physician: Florence Date of : 1960 Past Medical/Surgical History (entered by technologist): Symptoms/Reason For Exam (entered by technologist): melanoma surv Tech Notes (entered by technologist): gadobutrol (Gadavist) injection 6.6 mL Given: 6.6 mL Intravenous Dx: Malignant melanoma, unspecified site Additional History (per [facility]iologist): Contrast Agent and Dose: gadobutrol (Gadavist) injection 6.6 mL Comparison: MR head June 24, 2022 Technique: Multiplanar, Multisequence MRI through the head was performed without and with intravenous contrast. FINDINGS: Previously seen minimal enhancement in the right occipital lobe and right cingulate gyrus has resolved. No other significant change. Left parietal surgical changes, minimal susceptibility and gliosis in the left parietal lobe. Subcentimeter susceptibility in the right parietal lobe, left cerebellar hemisphere. No abnormally restricted diffusion. Minimal T2 hyperintensity in periventricular and subcortical white matter of both cerebral hemispheres. Punctate T2 hyperintensity in the right cerebellar hemisphere. Major intracranial vascular structures appear normal, noting FLAIR hyperintensity in the left transverse and sigmoid sinuses and jugular bulb, probably slow flow given no filling defect on postcontrast series. No suspicious bone lesions. No significant orbit abnormality. Normal midline structures. No abnormal enhancement. Previously seen minimal enhancement in the right occipital lobe is not definitely seen on this examination, possibly due to technique differences. Punctate enhancing focus in the right cingulate gyrus has resolved. Minimal left parietal dural enhancement, without nodularity, unchanged. Procedure Note Flako Goodson MD - 03/05/2025 [facility] - Phone Outpatient NAME: Dolores Weinstein DATE OF EXAM: 03/05/2025 Patient No: [id number] Physician: Florence Date of : 1960 Past Medical/Surgical History (entered by technologist): Symptoms/Reason For Exam (entered by technologist): melanoma surv Tech Notes (entered by technologist): gadobutrol (Gadavist) injection 6.6mL Given: 6.6 mL Intravenous Dx: Malignant melanoma, unspecified site Additional History (per [facility]iologist): Contrast Agent and Dose: gadobutrol (Gadavist) injection 6.6 mL Comparison: MR head June 24, 2022 Technique: Multiplanar, Multisequence MRI through the head was performedwithout and with intravenous contrast. FINDINGS: Previously seen minimal enhancement in the right occipital lobe and rightcingulate gyrus has resolved. No other significant change. Left parietal surgical changes, minimal susceptibility and gliosis in theleft parietal lobe. Subcentimeter susceptibility in the right parietallobe, left cerebellar hemisphere. No abnormally restricted diffusion.Minimal T2 hyperintensity in periventricular and subcortical white matterof both cerebral hemispheres. Punctate T2 hyperintensity in the rightcerebellar hemisphere. Major intracranial vascular structures appearnormal, noting FLAIR hyperintensity in the left transverse and sigmoidsinuses and jugular bulb, probably slow flow given no filling defect onpostcontrast series. No suspicious bone lesions. No significant orbitabnormality. Normal midline structures. No abnormal enhancement. Previously seen minimal enhancement in the rightoccipital lobe is not definitely seen on this examination, possibly due totechnique differences. Punctate enhancing focus in the right cingulategyrus has resolved. Minimal left parietal dural enhancement, withoutnodularity, unchanged. IMPRESSION: Previously seen minimal enhancement in the right occipital lobe and rightcingulate gyrus has resolved, compatible with history of treatedmetastases. No other significant change since the previous examination ofJan2022. No recurrence after left parietal craniotomy. No new metastasis. Flako Goodson M.D. This report has been electronically signed and verified by the Radiologistwhose name is printed above. This report contains privileged and confidential information and isintended solely for the use of the individual or entity to which it isaddressed. If you are not the intended recipient of this report, you arehereby notified that any copying, distribution, dissemination or actiontaken in relation to the contents of this report is strictly prohibitedand may be unlawful. If you have received this report in error, pleasenotify the sender immediately at [phone] and permanently delete theoriginal report and destroy any copies or printouts. Barbie Zendejas APRN IM MRI PROCEDURES Final Resu lt documented in this encounter Visit Diagnoses Diagnosis Malignant melanoma, unspecified site (CMS/HCC) documented in this encounter Administered Medications Inactive Administered Medications - up to 3 most recent administrations Medication Order MAR Action Action Date Dose Rate Site gadobutrol (Gadavist) injection 6.6 mL 6.6 mL (rounded from 6.62 mL = 0.1 mL/kg 66.2 kg), Intravenous, Once in imaging, 1 dose, Starting on Mon03/05/25 at 1211, Until Mon03/05/25 at 1237, Routine, Imaging Protocol Orders Given 03/05/2025 12:37 PM EDT 6.6 mL documented in this encounter Additional Health Concerns Assessment Noted Time A fall risk assessment has been complete d for the patient 03/05/2025 2:09 PM EDT A Body Mass Index follow-up plan has been documented for the patient 01/21/2025 8:08 AM EDT documented as of this encounter Care Teams Insurance Agency Owner Relationship Specialty Start Date End Date Antonio Odell MD [address] [facility] [address] [place] [address] PCP - General 10/16/20 Kendell Merchant MD 800 [facility] [address] [place] [address] Consulting Physician Medical Oncology 05/12/21 documented as of this encounter
--- OUTSIDE RECORDS SUMMARY | 2025-03-05 14:30 | XMS_ITS | Encounter Summary ---
Author Organization [facility] Address [address] [id number] Care Team Providers Care Library Clerk Name Role Phone Antonio Odell MD Primary Care Provider + [phone] Kendell Merchant MD Unavailable Reason for Visit * Reason Comments Follow-up Malignant melanoma, unspecified site Encounter Details Date Type Department Care Team ([facility] st Contact Info) Description 03/05/2025 2:30 PM EDT Office Visit [facility] Multidisciplinary Oncology Clinic [address] [place] [address] Barbie Zendejas R, PUBLIC INTERVIEWER 800 [facility] [address] [place] [address] Malignant melanoma, unspecified site (CMS/HCC) (Primary Dx) Social History Tobacco Use Types Packs/Day Years [...] drink first t marivel in the morning (EYE-FEATHER EDGER) to steady your nerves or to get rid of a hangover? 0 02/14/2023 CAGE Questionnaire Score 0 023 PHQ-2A Answer Date Recorded Depression Risk 0 05/19/2022 Comments No Sex and Gender Information Value Date Recorded Sex Assigned at Not on file Legal Sex Female 5:57 PM EDT Gender Identity Not on file Sexual Orientation Not on file documented as of this encounter Last Filed Vital Signs Vital Sign Reading Time Taken Comments Blood Pressure 134/84 03/05/2025 2:03 PM EDT Pulse 86 03/05/2025 2:03 PM EDT Temperature 36.4 C (97.6 F) 03/05/2025 2:03 PM EDT Respiratory Rate - - Oxygen Saturation 99% 03/05/2025 2:03 PM EDT Inhaled Oxygen Concentration - - Weight 67.6 kg (149 lb 0.5 oz) 03/05/2025 2:03 P M EDT Height 161.3 cm (5' 3.5 ) 03/05/2025 2:03 PM EDT Body Mass Index 25.99 03/05/2025 2:03 PM EDT documented in this encounter Functional Status * Over the [...] Carrie Gomez documented as of this encounter Miscellaneous Notes * Progress Notes - Barbie Zendejas APRN - 03/05/2025 2:30 PM EDT Medical Oncology Clinic Note Patient Name: Dolores Weinstein Date of : 1960 64 y.o. Referring Physician:No referring provider defined for this encounter. Encounter Date: 03/05/2025 Interval History: Patient presents to clinic today for follow up in the survivorship clinic. Reports gastric sleeve surgery approx 2 years ago. Had complications but now doing much better. She had wrist surgery per ortho on right wrist. 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 Sees PCP on a regular basis; scheduled for 03/07/25. Colonoscopy done about 3 years ago. Mammogram is UTD; pap smear is not UTD. Lifelong non smoker. She is seeing store detective annually. Due for an eye exam. No other significant clinical findings. Oncology History: - 64 yo F from [facility], presents for F/U of her metastatic melanoma. She originally underwent Moh???s excision of apparent 0.35mm L shoulder melanoma in 2001 (no path report available), with no evident recurrence. - Noted development of upper abdominal knot in July 2015, and [place] CT a/p confirmed 4cm subcutaneous mass; FNA and later core biopsies confirmed metastatic melanoma. - She was first seen at [facility], but ultimately referred to Dr. Perez in [place]. Staging CTscans showed multiple bilateral lung nodules as well as other subcutaneous metastases, and later PET/CT confirmed. - MR brain showed at least 5 small enhancing intracranial lesions, minimal edema associated. She had no neurologic complaints. She underwent SRS to all 5 lesions, on 08/31 and 09/04 2015, tolerated without complication. - Mutational profiling was obtained via [id number], and showed BRAF V600 mutation, as well as NF1,APC, TP53, PTEN and MAP2K1 mutations. She was thus begun on dual MEK inhibition w/Tafinlar and Mekinist on 09/14, then held 10/25 2/2 severe nausea. - Following this, she was begun on Keytruda on 11/03. Apparently, was re trialed on Mekinist and reduced dose Tafinlar in late November, but again discontinued 2/2 toxicity . F/u brain MR in late November showed slight interval progression of treated brain lesions, felt likely treatment sequela, and development of 2 new lesions. - F/u CTs showed response of lung nodules and primary subcutaneous mass; no new lesions. Thus continued q3wk Keytruda. She has had serial MR brain f/u; most recent scan of mid July essentially suggested interim slight progression of right parafalcine frontal lesion with increased edema, but no new or enlarging lesions otherwise. Her last dose of Keytruda was given 08/03. - She transferred oncology care to [facility] and resumed keytruda 09/08/16 (initiated November2015). CT scans continuously show stable disease with minimal volume. - One of the brain lesions was biopsied on 12/02/16, showing only necrosis without viable tumor cells identified. - December 2016 continuously showed stable disease with minimal volume. She was evaluated by Dr. Wolf on 12/14/2016. They would assume that is the etiology of the remainder of the brain lesions. Past Medical, Surgical, Family and Social History: Reviewed, and unchanged from most recent clinic visit or updated as indicated. Allergies and Adverse Drug Reactions: Iodinated contrast media, Iv contrast, Penicillins, Azithromycin, and Tape/bandaid adhesive Medications: Reviewed Review of Systems: 14 pt review of systems performed and negative except as noted in HPI. Physical Exam: Temp: [36.4 ??C (97.6 ??F)] 36.4 ??C (97.6 ??F) Heart Rate: [86] 86 BP: (134)/(84) 134/84 SpO2: [99 %] 99 % ECO General: Sitting/resting comfortably in chair, NAD HEENT: NCAT, PERRLA/EOMI, anicteric; no oral lesions Neck: Supple, no lymphadenopathy or JVD Heart: RRR, no MGR Lungs: CTAB; no rales, rhonchi or wheezes Abdomen: Soft, NTND, + BS Extremities: No edema, distal pulses intact Musculoskeletal: No focal tenderness or deformity Skin: No visible rashes or lesions Neuro: Grossly nonfocal; no localizing deficits of strength, sensation, or mentation Psychiatric: Normal mood and thought content LABS: No recent lab values available for review RADIOLOGY: FINDINGS: Previously seen minimal enhancement in the [...] due to technique differences. Punctate enhancing focus inthe right cingulate gyrus has resolved. Minimal left parietal dural enhancement, without nodularity, unchanged. IMPRESSION: Previously seen minimal enhancement in the right occipital lobe and right cingulate gyrus has resolved, compatible with history of treated metastases. No other significant change since the previous examination of June 24, 2022. No recurrence after left parietal craniotomy. No new metastasis. CLINICAL INDICATION: melanoma surv TECHNIQUE: Multiple axial CT images were obtained from lung bases through pubic symphysis without the administration of IV contrast. Reformatted images in the coronal and sagittal planes were generated from theaxial data set to facilitate diagnostic accuracy. Total [...] no focal lesions. Normal gallbladder. No biliary obstruction.Normal pancreas, kidneys and adrenal glands. Stable low- density lesion in the spleen. 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 The large andsmall bowel appear normal in caliber. No evidence [...] of metastases in the abdomen or pelvis. CLINICAL INDICATION: melanoma surv TECHNIQUE: Multiple CT [...] solid nodule (series 3/image 53). Additional bilateral fullycalcified granulomas. 2 mm nodule (medial left lower lobe on image 61 of series 3 stable since 2020, most likely benign. No new suspicious lung nodules are noted in interval. Upper Abdomen: Small fluid density splenic cyst/pseudocyst. Sleeve gastrectomy. Musculoskeletal: No suspicious lytic or sclerotic lesion. Multinodular thyroid. IMPRESSION: No CT evidence of metastatic disease within the chest. ASSESSMENT AND PLAN: #Metastatic Melanoma, BRAF positive. Primary resection left shoulder in 2001, metastatic lesions of subcutaneous/upper abdomen, lung andbrain diagnosed August 2015. -SP SRS to 5 brain lesions August-September 2015, followed by trial of dual MEK inhibition w/Tafinlar and Mekinist, but intolerant. -Keytruda since November 2015; Been on hold since 03/2017 due to generalized muscle and joint pain. CT scans continuously showed stable disease with minimal volume (one nodule even disappear). -One of the brain lesions was biopsied on 12/02/16, showing only necrosis without viable tumor cellsidentified. - She was last evaluated by Dr. Wolf on 12/14/2016. They would assume that is the etiology of theremainder of the brain lesions. They think her brain mets are under control. - CT C/A/P 05/12/2021: No evidence of disease progression in chest, abdomen, or pelvis. - MR Head 05/12/2021: no signs of disease progression PLAN for 03/05/2025: - Over 5 years from her brain mets treatment - RTC in 12 months in survivorship clinic with repeat scans C/A/P and MRI brain. Patient is no longer following with neurosurgery - Continue [employer] followup annually and prn. - CT CAP and MRI brain today is without concerns for cancer recurrence #Arthralgias - Saw [facility] disc inspector on 07/27/17; diagnosed with Fibromyalgia. - Now PCP follows her for this problem. - No longer taking duloxetine as recommended by PCPF/U with [facility] rheum as scheduled. - Following with ortho s/p right knee replacement on 07/05/2021 #Obesity - s/p bariatric sleeve per Dr. Thompson Problem Health maintenance - Sees PCP on a regular basis - Colonoscopy Is UTD - Mammogram is UTD - Pap smear not UTD - Dermatology annually and prn - Lifelong non smoker Imaging has been reviewed by me. I have discussed the findings with the patient in detail. I have verified the patient's name and date of and gave a copy of the imaging results to the patient. The results of the imaging have been part of my medical decision making. The selection, dosing and administration of anti-cancer agents and the management of associated toxicities requires complex medical decision making and intensive monitoring for toxicity. Modifications of drug dose and schedule as well as the initiation of supportive care interventions are often necessary because of expected toxicities. This varies individually based on patient tolerability, priortreatments and comorbidities/risk status. Monitoring typically entails labs, imaging and/or other diagnostics, utilizing a healthcare delivery team experienced in the use of anticancer agents and themanagement of associated toxicities in patients with cancer. Barbie Zendejas, MARTHA, PUBLIC INTERVIEWER, SAFETY AIDE-C Division of Medical Oncology documented in this encounter Plan of Treatment Upcoming Encounters Date Type Department Care Team (Late st Contact Info) Description 03/12/2026 9:00 AM EDT Appointment [facility] Radiology [address] [place] [address] 03/12/2026 10:20 AM EDT Appointment [facility] CT [address], [address] [place] [address] 03/12/2026 1:30 PM EDT Office Visit [facility] Multidisciplinary Oncology Clinic [address] [place] [address] Barbie Zendejas APRN [address] [facility] [address] [place] [address] documented as of this encounter Goals Goal [...] Lisa Cueva documented as of this encounter Visit Diagnoses Diagnosis Malignant melanoma, unspecified site (CMS/HCC)- Primary documented in this encounter Additional Health Concerns Assessment Noted Time A fall risk assessment has been complete d for the patient 03/05/2025 2:09 PM EDT A Body Mass Index follow-up plan has been documented for the patient 01/21/2025 8:08 AM EDT documented as of this encounter Care Teams Library Clerk Relationship Specialty Start Date End Date Antonio Odell MD [facility] [address] [address] PCP - General 10/16/20 Kendell Merchant MD [address] [address] Consulting Physician Medical Oncology 05/12/21 documented as of this encounter
--- OUTSIDE RECORDS SUMMARY | 2025-03-07 05:00 | XMS_ITS ---
Author Organization [facility] Address [address] [facility] [address] [facility] [address] [place] [id number] Care Team Providers Care Director Traffic And Planning Name Role Phone Svetlana Mayfield Primary Care Provider Briana Ольга Unavailable [phone] Allergies Allergen (clinical drug ingredient) Drug/Non Drug Allergy documented on EMR Reaction Allergy Type Onset Date Status azithromycin Zithromax Z-Lorenzo diarrhea Drug Allergy Active Substance with penicillin structure and antibacterial mechanism of action (substance) Penicillins Unknown Drug Allergy Active Results Component Value Reference Range Notes CBC Venipuncture (in house) Reviewed date:03/07/2025 04:14:48 PM Interpretation: Performing Lab: Notes/Report: wbc 3.7 3.5 - 10 lymph 32.1 15 - 50 mid 6.0 2 - 15 gran 61.9 35 - 80 rbc 4.92 3.5 - 5.5 hgb 14.7 11.5 - 16.5 hct 44.6 35 - 55 mcv 90.7 75 - 100 mch 29.9 25 - 35 mchc 33.0 31 - 38 platlet 186 100 - 400 P-Vitamin B12 Reviewed date:04/01/2025 04:31:52 PM Interpretation:222 Performing Lab: Notes/Report: Test performed by [facility] [address] [place] [address] , [address], [place] [address] Geo Gauthier MD, Twisting Machine Operator CLIA: [id number] Vitamin B12 739 179-1066 pg/mL Vitamin B1 (Thiamine), Blood , LC/MS/MS Reviewed date:04/01/2025 04:31:52 PM Interpretation:Normal Performing Lab: Notes/Report: Vitamin B1 (Thiamine), Blood, LC/MS/MS 148 70-180 nmol/L INTERPRETIVE INFORMATION: Vitamin B1, Whole Blood This assay measures the concentration of thiamine diphosphate (TDP), the primary active form of vitamin B1. Approximately 90 percent of vitamin B1 present in whole blood is TDP. Thiamine and thiamine monophosphate, which comprise the remaining 10 percent, are not measured. This test was developed and its performance characteristics determined by [email or web address]. It has not been cleared or approved by the US Food and Drug Administration. This test was performed in a CLIA certified laboratory and is intended for clinical purposes. Performed By: [email or web address] [address] [place] [id number] Twisting Machine Operator: Humberto Ovalles MD, PhD CLIA Number: [id number] P-Comprehensive Metabolic Pa gretel (CMP) Reviewed date:04/01/2025 04:31:52 PM Interpretation:Normal Performing Lab: Notes/Report: Test performed by [facility] [address] [place] [address] , [place] [address] Geo Gauthier MD, Twisting Machine Operator CLIA: [id number] Sodium 141 135-145 mmol/L Potassium 4.6 3.5-5.3 mmol/L Chloride 105 97-108 mmol/L CO2 27 20-32 mmol/L Glucose 88 65-99 mg/dL BUN 18 8-23 mg/dL Creatinine 0.66 0.50-1.00 mg/dL Calcium 9.6 8.6-10.4 mg/dL eGFR by Creatinine 99 >59 mL/min/1.73m2 Protein 6.3 6.0-8.3 g/dL Albumin 4.0 3.5-5.3 g/dL Alkaline Phosphatase 108 35-121 IU/L ALT (SGPT) 12 <5-47 IU/L AST (SGOT) 16 <5-40 IU/L Bilirubin, Total 0.9 <0.2-1.2 mg/dL A/G Ratio 1.7 1.1-2.5 P-Folate Reviewed date:04/01/2025 04:31:52 PM Interpretation:3.43 Performing Lab: Notes/Report: Test performed by [facility] [address] [place] [address] , Marika C, [place] [address] Geo Gauthier MD, Twisting Machine Operator CLIA: [id number] Folate 3.43 >4.59 ng/mL P-T4 Free (thyroxine) Reviewed date:04/01/2025 04:31:52 PM Interpretation:Normal Performing Lab: Notes/Report: Test performed by [facility] [address] [place] [address] [place] [address] Geo Gauthier MD, Twisting Machine Operator CLIA: [id number] Thyroxine Free (free T4) 1.31 0.86-1.76 ng/dL P-Lipid Panel Reviewed date:04/01/2025 04:31:52 PM Interpretation:Normal Performing Lab: Notes/Report: Test performed by [facility] [address] [place] [address] Marika Subramanian , [place] [address] Geo Gauthier MD, Twisting Machine Operator CLIA: [id number] Lipid Panel Footnote See Below *Based on optimal reference values. Please refer to the DOS for additional information regarding diagnostic lipid reference ranges, patient management based on the recently updated lipid guidelines ([place] [employer]/[place] Heart Association Task Force on Clinical Practice Guidelines (2018), and pediatric diagnostic lipid reference values (<18 years old). Total Cholesterol 180 <200 mg/dL Triglycerides 41 <150 mg/dL HDL Cholesterol 74 >50 mg/dL Total Cholesterol / HDL Ratio* 2.43 <3.99 Ratio Non-HDL Cholesterol 106 <130 mg/dL LDL Cholesterol (Calculation) 98 <100 mg/dL LDL / HDL Ratio* 1.32 <1.99 Ratio LDL Cholesterol Patient History Test Date: 06/16/2023 LDL Results: 125 Units: mg/dL % Change: - Test Date: 11/02/2023 LDL Results: 108 Units: mg/dL % Change: -13% Test Date: 03/07/2025 LDL Results: 98 Units: mg/dL % Change: -9% P-Magnesium Reviewed date:04/01/2025 04:31:53 PM Interpretation:Normal Performing Lab: Notes/Report: Test performed by [facility] [address] [place] [address] , [place] [address] Geo Gauthier MD, Twisting Machine Operator CLIA: [id number] Magnesium 2.1 1.6-2.4 mg/dL P-TSH Reviewed date:04/01/2025 04:31:53 PM Interpretation:Normal Performing Lab: Notes/Report: Test performed by [facility] [address] [place] [address] [place] [address] Geo Gauthier MD, Twisting Machine Operator CLIA: [id number] TSH 1.85 0.43-5.25 mU/L P-Vitamin D 25-Hydroxy Reviewed date:04/01/2025 04:31:53 PM Interpretation:30.8 Performing Lab: Notes/Report: Test performed by [facility] [address] [place] [address] , [facility], [place] [address] Geo Gauthier MD, Twisting Machine Operator CLIA: [id number] Vitamin D 25-Hydroxy 30.8 30.0-100.0 ng/mL Interpretation of Vitamin D 25 OH: < 20 ng/mL - Deficiency 20 - 29 ng/mL - Insufficiency 30 - 100 ng/mL - Sufficiency > 100 ng/mL - Super-therapeutic- toxicity may occur above this level. Clinical correlation required. P-Vitamin B1 (Thiamine), Ser um/Plasma, LC/MS/MS Reviewed date:04/01/2025 04:31:53 PM Interpretation: Performing Lab: Notes/Report: Test Cancelled Test Cancelled Unable to p erform testing due to improper specimen type received. Unable to perform testing due to improper specimen type received REASON FOR VISIT checkup with labs and Annual Wellness Visit Medications Medication SIG (Take, Route, Frequency, Duration) Notes Start Date End Date Status Omeprazole 20 MG 1 cap(s) Orally Two times a day; Duration: 90 days 06/16/2023 Not-Taking Potassium Chloride ER 10 MEQ 1 capsule with food Orally Twice a day; Duration: 30 day(s) 06/22/2023 Not-Taking B-12 1000 MCG 1 tab(s) orally once a day 08/01/2019 Not-Taking Folic Acid 1 MG 1 tablet Orally Once a day 11/15/2023 Not-Taking Bromfed DM 2-30-10 MG/5ML 5-10 mL Orally four times a day, prn 03/01/2024 Not-Taking Multivitamin - as directed Orally Not-Taking Zegerid 20-1100 MG 1 capsule on an empt y stomach Orally Once a day; Duration: 30 day(s) Not-Taking Calcium 600 MG 1 tablet with meals Orally Twice a day Not-Taking Pregabalin 50 MG 1 capsule Orally Two times a day; Duration: 30 day(s) 11/02/2023 Not-Taking Immunizations Vaccine Route Administration Date Status Stacy Patiño (6months&older) IM Intramuscular 03/07/2025 Administered Vital Signs Blood pressure systolic 128 mm Hg 03/07/20 25 Blood pressure diastolic 80 mm Hg 025 Heart Rate 58 /min 03/07/2025 Height 64.50 in 03/07/2025 Weight 150.4 lbs 03/07/2025 BMI 25.41 kg/m2 03/07/2025 Encounters Encounter Location Date Provider Diagnosis [facility] [address] [facility] [address] YAMILET Horta [id number] 03/07/2025 Ольга Warren Adult general medica l examination Z00.00 ; Folic acid deficiency E53.8 ; Fibromyalgia M79.7 ; S/P gastric sleeve procedure Z90.3 ; Essential (primary) hypertension I10 ; Vitamin D deficiency E55.9 ; Acquired hypothyroidism E03.9 ; Vitamin B 12 deficiency E53.8 ; Chronic GERD K21.9 ; Vitamin B1 deficiency E51.9 ; Depression with anxiety F41.8 ; BMI 25.0-25.9,adult Z68.25 ; Hypocalcemia E83.51 ; Screening mammogram, encounter for Z12.31 ; Osteoporosis screening Z13.820 ; Encounter for screening colonoscopy Z12.11 ; Screening, lipid Z13.220 and Encounter for immunization Z23 Assessments Encounter Date Diagnosis (ICD Code) Assessment Notes Treatment Notes Treatment Clinical Notes Section Notes 03/07/2025 Adult general medical examination (ICD-10 - Z00.00) Patient instructed to return to office Annually for Annual Wellness Visits to include annual screenings of Pain assessment, Functional Ability assessment, Cognitive Ability assessment, Fall Risk assessment, Depression screening and Bladder control screening. 03/07/2025 Folic acid deficiency (ICD-10 - E53.8) 03/07/2025 Fibromyalgia (ICD-10 - M79.7) 03/07/2025 S/P gastric sleeve procedure (ICD-10 - Z90.3) 03/07/2025 Essential (primary) hypertension (ICD-10 - I10) 03/07/2025 Vitamin D deficiency (ICD-10 - E55.9) 03/07/2025 Acquired hypothyroidism (ICD-10 - E03.9) 03/07/2025 Vitamin B 12 deficiency (ICD-10 - E53.8) 03/07/2025 Chronic GERD (ICD-10 - K21.9) 03/07/2025 Vitamin B1 deficiency (ICD-10 - E51.9) 03/07/2025 Depression with anxiety (ICD-10 - F41.8) 03/07/2025 BMI 25.0-25.9,adult (ICD-10 - Z68.25) 03/07/2025 Hypocalcemia (ICD-10 - E83.51) 03/07/2025 Screening mammogram, encounter for (ICD-10 - Z12.31) 03/07/2025 Osteoporosis screening (ICD-10 - Z13.820) 03/07/2025 Encounter for screening colonoscopy (ICD-10 - Z12.11) 03/07/2025 Screening, lipid (ICD-10 - Z13.220) 03/07/2025 Encounter for immunization (ICD-10 - Z23) Plan Of Treatment Treatment Notes Assessment Notes Adult general medical examination Patien t instructed to return to office Annually for Annual Wellness Visits to include annual screenings of Pain assessment, Functional Ability assessment, Cognitive Ability assessment, Fall Risk assessment, Depression screening and Bladder control screening. Pending Test Test Name Order Date colonoscopy 03/07/2025 Mammogram 03/07/2025 Next Appt Details Follow Up: As directed by , Reason: Provider Name:Ольга veronica, 05/21/2025 10:30:00 AM, [address] [facility] [address] [facility], [address], [place], [place], [id number], Progress Notes * JAE SLAUGHTERADOB:1960 ( 64 yo F)Acc No.[id number]:03/07/2025 Annual Wellness Visit Patient: FELICIA HAMILTON Provider: PRESTON Noel :1960 A ge:64 Y S ex:Female Date:03/07/2025 Address:[address] [place] [address] Pcp:Svetlana Mayfield Subjective: * Chief Complaints: * 1 . checkup with labs and Annual Wellness Visit. * HPI: H PI: Patient is here today for yehuda flores with labs and a Medicare Annual Wellness Visit. Pt is fasting. Pt states she wants to see what vitamins she needs to be taking. * ROS: D ERMATOLOGY: no R deniz. n o H rich. G ASTROENTEROLOGY: no N ausea. n o V omiting. n o D iarrhea.? O PTHALMOLOGY: Negative for d enies vision issues. U ROLOGY: no B lood in urine. n o F requent urination. ? * Medical History: H yperlipidemia, Hypertension, Dx: 2013, Vitamin D deficiency, Dx: 2013, Stage 4 metastatic melanoma, Fibromyalgia, Polyarthralgia, s/p Rheumatology evaluation 2017, J&[employer] Covid Vaccine August. * Surgical History: A ppendectomy , Tonsilectomy, Adenoidectomy , LT Should Melanoma , Tubal Ligation , Gastric Sleeve 01/13/2023, EGD x 2 . * Hospitalization/Major Diagno stic Procedure: D ehydration , Sinus Infection- [facility] 03/2014. * Family History: F ather: . [...] loose weight, cutting out carbs. 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 Past smoking status: no. Alcohol: No. Sexually active: yes. * Medications: N ot-Taking Pregabalin 50 MG Capsule 1 capsule Orally Two times a day , Not-Taking Multivitamin - Tablet Chewable as directed Orally , Not-Taking Zegerid 20-1100 MG Capsule 1 capsule on an empty stomach Orally Once a day , Not-Taking Calcium 600 MG Tablet 1 tablet with meals Orally Twice a day , Not-Taking Omeprazole 20 MG Capsule Delayed Release 1 cap(s) Orally Two times a day , Not-Taking Potassium Chloride ER 10 MEQ Capsule Extended Release 1 capsule with food Orally Twice a day , Not-Taking B-12 1000 MCG Tablet 1 tab(s) orally once a day , Not-Taking Folic Acid 1 MG Tablet 1 tablet Orally Once a day , Not-Taking Bromfed DM 2-30-10 MG/5ML Syrup 5-10 mL Orally four times a day, prn , Medication List reviewed and reconciled with the patient * Allergies: P enicillins, Zithromax Z-Lorenzo: diarrhea. Objective: * Vitals: W t: 150.4, Temp: 97.5, BP: 128/80, HR: 58, Nurse: natali, Ht: 64.50, BMI:25.41. * Examination: G eneral Examination: General Appearance: N AD. H EENT: u nremarkable.?Oral cavity: n o lesions, mucosa moist and WNL, no erythema. N cesario: s upple, no lymphadenopathy. C hest: n ormal shape and expansion. H eart: R SR. L ungs: c lear to auscultation. A bdomen: b owel sounds present, soft and nontender, no guarding or rigidity. N eurologic Exam: I ntact, gait normal. S kin: n ormal, no rash. P eripheral pulses: n ormal (2+) bilaterally. E xtremities: n o leg edema. * Physical Examination: G ENERAL: Pain Assessment: P ain level: 5-9, on a scale of 0-10 (with 10 being extreme pain). F unctional Status Assessment: P atient response to question of how often physical health interferes with daily activities: Occasionally . Able to perform ADLs-including meal preparation, grocery shopping, housework, laundry, taking medications or handling finances. Cognitive Status: alert and oriented. Ambulation Status: Fully ambulatory. F all Risk Assessment: I ndependant in ambulation, adequate lighting in home. Patient has NOT fallen or had trouble walking within the past 12 months. D epression Screening: D enies depressed mood or anxiety. Describes emotional health as: calm/peaceful. B ladder Control Screening: D enies problems. Assessment: * Assessment: 1. A dult general medical examination - Z00.00 (Primary) 2 . F olic acid deficiency - E53.8 3 . F ibromyalgia - M79.7 4 . S /P gastric sleeve procedure - Z90.3 5 . E ssential (primary) hypertension - I10 6. V itamin D deficiency - E55.9 7 . A cquired hypothyroidism - E03.9? 8. V itamin B 12 deficiency - E53.8 9 . C hronic GERD - K21.9 1 0. V itamin B1 deficiency - E51.9 1 1. D epression with anxiety - F41.8 1 2. B DE 25.0-25.9,adult - Z68.25 1 3. H ypocalcemia - E83.51 1 4. S creening mammogram, encounter for - Z12.31 1 5. O steoporosis screening - Z13.820 1 6. E ncounter for screening colonoscopy - Z12.11 1 7. S creening, lipid - Z13.220 1 8. E ncounter for immunization - Z23 Plan: * Treatment: 2. F olic acid deficiency L AB: P-Folate (Collection Date & Time - 03/07/2025 08:43 AM) 3 .43 Value Reference Range F olate 3.43 L >4.59 - ng/mL * Ольга Warren 03/07/2025 0 9:41:25 AM EDT >room B, brenda Balderas Quyen 03/13/2025 08:51:12 AM EDT > See phone encounter 3.?Fibromyalgia?LAB: P-Magnesium (Collection Date & Time - 03/07/2025 08:43 AM)?Normal* Value Reference Range M agnesium 2.1 1.6-2.4 - mg/dL * Ольга Warren Breanna 03/07/2025 0 9:41:25 AM EDT >room B, Quyen Luke 03/13/2025 08:51:12 AM EDT > See phone encounter 4.?Essential (primary) hypertension?LAB: P-Comprehensive Metabolic Panel (CMP) (Collection Date & Time - 03/07/2025 08:43 AM)?Normal* Value Reference Range A /G Ratio 1.7 1.1-2.5 - * A lbumin 4.0 3.5-5.3 - g/dL * A lkaline Phosphatase 108 35-121 - IU/L * A LT (SGPT) 12 <5-47 - IU/L * A ST (SGOT) 16 <5-40 - IU/L * B ilirubin, Total 0.9 <0.2-1.2 - mg/dL * B UN 18 8-23 - mg/dL * C alcium 9.6 8.6-10.4 - mg/dL * C hloride 105 97-108 - mmol/L * C O2 27 20-32 - mmol/L * C reatinine 0.66 0.50-1.00 - mg/dL * G lucose 88 65-99 - mg/dL * P otassium 4.6 3.5-5.3 - mmol/L * S odium 141 135-145 - mmol/L * P rotein 6.3 6.0-8.3 - g/dL * e GFR by Creatinine 99 >59 - mL/min/1.73m2 * Todd Warrenantonio Carlos 03/07/2025 0 9:41:25 AM EDT >room B, Quyen Luke 03/13/2025 08:51:12 AM EDT > See phone encounter ?LAB: CBC Venipuncture (in house) (Collection Date & Time - 03/07/2025)* Value Reference Range w bc 3.7 3.5 - 10 * l ymph 32.1 15 - 50 * m id 6.0 2 - 15 * g ran 61.9 35 - 80 * r bc 4.92 3.5 - 5.5 * h gb 14.7 11.5 - 16.5 * h ct 44.6 35 - 55 * m cv 90.7 75 - 100 * m ch 29.9 25 - 35 * m chc 33.0 31 - 38 * p latlet 186 100 - 400 * Nelda Patel 03/07/2025 1 0:12:03 AM EDT > 5.?Vitamin D deficiency?LAB: P-Vitamin D 25-Hydroxy (Collection Date & Time - 03/07/2025 08:43 AM)? 30.8* Value Reference Range V itamin D 25-Hydroxy 30.8 30.0-100.0 - ng/mL * Ruizmarcel Ольга Carlos 03/07/2025 0 9:41:25 AM EDT >room Bbrenda Whitney 03/13/2025 08:51:12 AM EDT > See phone encounter 6.?Acquired hypothyroidism?LAB: P-T4 Free (thyroxine) (Collection Date & Time - 03/07/2025 08:43 AM)? Normal* Value Reference Range T hyroxine Free (free T4) 1.31 0.86-1.76 - ng/d L * Ольга Warren 03/07/2025 0 9:41:25 AM EDT >room Bbrenda Whitney 03/13/2025 08:51:12 AM EDT > See phone encounter ?LAB: P-TSH (Collection Date & Time - 03/07/2025 08:43 AM)?Normal* Value Reference Range T SH 1.85 0.43-5.25 - mU/L * Ольга Warren 03/07/2025 0 9:41:25 AM EDT >room brenda Chen Whitney 03/13/2025 08:51:12 AM EDT > See phone encounter 7.?Vitamin B 12 deficiency?LAB: P-Vitamin B12 (Collection Date & Time - 03/07/2025 08:43 AM)?222* Value Reference Range V itamin B12 222 L 232-1245 - pg/mL * Ольга Warren 03/07/2025 0 9:41:25 AM EDT >room B, Quyen Luke 03/13/2025 08:51:12 AM EDT > See phone encounter 8.?Vitamin B1 deficiency?LAB: P-Vitamin B1 (Thiamine), Serum/Plasma, LC/MS/MS (Collection Date & Time - 03/07/2025 08:43AM)* Value Reference Range T est Cancelled Test Cancelled - * Ольга Warren 03/07/2025 0 9:41:25 AM EDT >room brenda Chen Whitney 03/13/2025 08:51:12 AM EDT > See phone encounter 9.?Screening mammogram, encounter for?Imaging: Mammogram* Allyssa Rangel 03/07/2025 03:3 3:05 PM EDT > faxed to [facility] Scheduling 10.?Encounter for screening colonoscopy?Imaging: colonoscopy* Ольга Warren 03/07/2025 0 3:23:17 PM EDT >Needs with Allyssa Harrington 03/07/2025 03:42:38 PM EDT > faxed to [facility] GI 11.?Screening, lipid?LAB: P-Lipid Panel (Collection Date & Time - 03/07/2025 08:43 AM)?Normal* Value Reference Range C holesterol / HDL Ratio 2.43 <3.99 - Ratio * C holesterol 180 <200 - mg/dL * H DL Cholesterol 74 >50 - mg/dL * L DL Cholesterol (Calculation) 98 <100 - mg/d L * L DL/HDL Ratio 1.32 <1.99 - Ratio * N on-HDL Cholesterol 106 <130 - mg/dL * T riglycerides 41 <150 - mg/dL * L ipid Panel Footnote See Below - * Briana Ольга Carlos 03/07/2025 0 9:41:25 AM EDT >room B, purple Quyen Balderas 03/13/2025 08:51:12 AM EDT > See phone encounter * Immunizations: Fluzone Quad (6months&older) : 0.5 mL (Route: Intramuscular) given by SEFERINO Fischer , Adjunct History Instructor on Left Deltoid (Encounter for immunization) * Labs: * L ab: Vitamin B1 (Thiamine), Blood, LC/MS/MS (Collection Date & Time - 03/07/2025 08:43 AM) N ormal Value Reference Range V itamin B1 (Thiamine), Blood, LC/MS/MS 148 70 -180 - nmol/L * [facility], IT support 03/13/2025 02:30:13 : This order was created by the Interface. Quyen Balderas 03/13/2025 08:51:12 AM EDT > See phone encounter * Procedure Codes: G 0439 ANNUAL WELLNESS VST; PPS SUBSQT VST, G2211 Complex e/m visit add on, 1090F PRES/ABSN URINE INCON ASSESS, 3288F FALL RISK ASSESSMENT DOCD, 1170F FXNL STATUS ASSESSED, 1159F MED LIST DOCD IN RCRD, 1003F LEVEL OF ACTIVITY ASSESS, 06619 CBC WITH AUTO DIFF, 1036F TOBACCO NON-USER, 3017F COLORECTAL CA SCREEN DOC REV, 1125F AMNT PAIN NOTED PAIN PRSNT, G8420 BMI<30 AND >=22 CALC & DOCU, G8950 PREHTN/HTN BP DOC INDCD F/U DOC, G8752 MOST RECENT SYSTOLIC BP < 140MM HG, G8754 MOST RECENT DIASTOLIC BP < 90MM HG, 3074F SYST BP LT 130 MM HG, 3079F DIAST BP 80-89 MM HG, G8510 NEG SCR Depression PT NOT ELIG F/U/PLN DOC, G9899 Scrn yelena perf rslts doc * Preventive Medicine: Counseling: E motional health: P atient encouraged to try connecting with family or friends to boost mood. B ladder control: M ethods of controlling or managing leakage of urine discussed. E xercise: P atient advised to start, increase or maintain level of exercise/physical activity. I njury prevention: F all prevention discussed. Discussed need for cane/walker. Potential trip hazards discussed. Immunizations: T etanus u p to date. P neumococcal r ecommended. I nfluenza r ecommended seasonally. Screening / Special Tests: M ammogram R ecent history:07/18/2023, negative, recommended today. C olonoscopy R ecent history:12/31/2018, polyps, hemorrhoids, repeat 5 years. Bone mineral Density R ecent history:05/20/2020, osteoporosis, recommended. * Follow Up: A s directed by * Images: Drawin03/07/25 [facility] Billing Information: * Visit Code: 35343 Office Visit, Est Pt., Level 3. Modifiers: 25 * Procedure Codes: G0439 ANNUAL WELLNESS VST; PPS SUBSQT VST. G2211 Complex e/m visit add on. 1090F PRES/ABSN URINE INCON ASSESS. 3288F FALL RISK ASSESSMENT DOCD. 1170F FXNL STATUS ASSESSED. 1159F MED LIST DOCD IN RCRD. 1003F LEVEL OF ACTIVITY ASSESS. 68773 CBC WITH AUTO DIFF. 1036F TOBACCO NON-USER. 3017F COLORECTAL CA SCREEN DOC REV. 1125F AMNT PAIN NOTED PAIN PRSNT. G8420 BMI<30 AND >=22 CALC & DOCU. G8950 PREHTN/HTN BP DOC INDCD F/U DOC. G8752 MOST RECENT SYSTOLIC BP < 140MM HG. G8754 MOST RECENT DIASTOLIC BP < 90MM HG. 3074F SYST BP LT 130 MM HG. 3079F DIAST BP 80-89 MM HG. G8510 NEG SCR Depression PT NOT ELIG F/U/PLN DOC. G9899 Scrn yelena perf rslts doc. * Electronic signature of PRESTON Cui on 04/03/2025 at 08:53 AM EDT Sign off status: Pending * Provider: PRESTON Noel Date: 1 Generated for Brea jordan/Franklyn/Maggi on: 08:53 AM EDT History and Physical Notes * HPI (History of Present Illness) Category Sub-Category Detail Notes Category Not es HPI Patient is here today for checku p with labs and a Medicare Annual Wellness Visit. Pt is fasting. Pt states she wants to see what vitamins she needs to be taking Physical Examination Category Sub-Category Detail Notes Section Note s GENERAL Pain Assessment: Pain level: 5-9 , on a scale of 0-10 (with 10 being extreme pain) Functional Status Assessment: Patient re sponse to question of how often physical health interferes with daily activities: Occasionally . Able to perform ADLs-including meal preparation, grocery shopping, housework, laundry, taking medications or handling finances.Cognitive Status: alert and oriented.Ambulation Status: Fully ambulatory Fall Risk Assessment: Independant in amb ulation, adequate lighting in home. Patient has NOT fallen or had trouble walking within the past 12 months Depression Screening: Denies depressed m ood or anxiety. Describes emotional health as: calm/peaceful Bladder Control Screening: Denies proble ms Examination Category Sub-Category Detail Notes Category Not es General Examination HEENT: unremarkable Heart: RSR Lungs: clear to auscultatio n Abdomen: bowel sounds present , soft and nontender, no guarding or rigidity Extremities: no leg edema General Appearance: NAD Skin: normal, no rash Neurologic Exam: Intact, gait normal Neck: supple, no lymphaden opathy Oral cavity: no lesions, mucosa m oist and WNL, no erythema Peripheral pulses: normal (2+) bilatera lly Chest: normal shape and exp ansion
--- NOTE | 2025-04-03 08:52 | MM_ITS ---
PROCEDURE INFORMATION: Exam: MG Bilateral Screening 3D Mammography Exam date and time: 04/03/2025 9:03 AM Age: 64 years old Clinical indication: Screening mammogram TECHNIQUE: Imaging protocol: Bilateral Screening tomosynthesis and 2D mammography including computer-aided detection (CAD) when performed. COMPARISON: 1. MG MM DIG SCREENING MAMM BI W/CAD 07/18/2023 10:24 AM 2. MG MM DIG MAMM DX UNILAT LT CAD 06/12/2020 2:42 PM 3. MG MM DIG SCREENING MAMM BI W/CAD 05/20/2020 8:21 AM 4. MG MM DIG SCREENING MAMM BI W/CAD 03/12/2019 9:22 AM FINDINGS: MAMMOGRAPHY: Breast composition: There are scattered areas of fibroglandular density. Mass: None. Architectural distortion: No new or suspicious architectural distortion. Calcifications: No new or suspicious calcifications are present Asymmetric density: No new or suspicious asymmetric density is present Skin thickening: None. Axillary adenopathy: None. IMPRESSION: No mammographic evidence of malignancy. Recommend annual screening mammography unless otherwise clinically indicated. ASSESSMENT: BI-RADS category 1: Negative.
--- NOTE | 2025-04-03 08:52 | XR_ITS ---
FINAL REPORT CLINICAL HISTORY: post menopasual COMPARISON: 05/20/2020 FINDINGS: Using L1-4, the bone mineral density of the spine is 0.939 g/cm2, corresponding to T-score of -1.0, within normal limits. Previously was 0.924 with a T-score of -1.1. Using the left hip, the bone mineral density of the femoral neck is 0.555 g/cm2, corresponding to a T-score of -2.6, consistent with osteoporosis. Previously was 0.728 with a T-score of -1.1. Using the right hip, the bone mineral density of the femoral neck is 0.578 g/cm2, corresponding to a T-score of -2.4, consistent with osteopenia. Previously was 0.555 with a T-score of-2.7. FRAX not reported because some T-score at or below -2.5. NOTE: T-score: Standard deviation compared with peak bone mass of young adult mean. *Following the recommendations of the International Society of Bone densitometry, classification of hip BMD is based on the lower of two T-scores; total hip or femoral neck. IMPRESSION: Diminished bone mineral density consistent with osteoporosis. Reviewed, Interpreted and Dictated by Darian Pichardo MD Transcribed by Esperanza Bender Authenticated and [facility]
--- OUTSIDE RECORDS SUMMARY | 2025-04-03 08:54 | XMS_ITS | Patient Health Record ---
Author Organization [facility] Address [address] [facility] [address] [place] [id number] Care Team Providers Care Coarse Wire Drawer Name Role Phone Svetlana Mayfield Primary Care Provider Ольга Warren Unavailable [phone] Allergies Allergen (clinical drug ingredient) Drug/Non Drug Allergy documented on EMR Reaction Allergy Type Onset Date Status azithromycin Zithromax Z-Lorenzo diarrhea Drug Allergy Active Substance with penicillin structure and antibacterial mechanism of action (substance) Penicillins Unknown Drug Allergy Active Results Component Value Reference Range Notes Vitamin B1 (Thiamine), Blood , LC/MS/MS Reviewed [...] developed and its performance characteristics determined by [facility]. It has not been cleared or approved by the US Food and Drug Administration. This test was performed in a CLIA certified laboratory and is intended for clinical purposes. Performed By: [facility] [address] [place] [id number] Manager International: Humberto Ovalles MD, PhD CLIA Number: [id number] P-Vitamin B1 (Thiamine), Ser um/Plasma, LC/MS/MS Reviewed date:04/01/2025 04:31:53 PM Interpretation: Performing Lab: Notes/Report: Test Cancelled Test Cancelled Unable to p erform testing due to improper specimen type received. Unable to perform testing due to improper specimen type received P-Vitamin D 25-Hydroxy Reviewed date:04/01/2025 04:31:53 PM Interpretation:30.8 Performing Lab: Notes/Report: Test performed by [facility] [address] , [address], [place] [address] Geo Gauthier MD, Manager International CLIA: [id number] Vitamin D 25-Hydroxy 30.8 30.0-100.0 ng/mL Interpretation of Vitamin D 25 OH: < 20 ng/mL - Deficiency 20 - 29 ng/mL - Insufficiency 30 - 100 ng/mL - Sufficiency > 100 ng/mL - Super-therapeutic- toxicity may occur above this level. Clinical correlation required. P-TSH Reviewed date:04/01/2025 04:31:53 PM Interpretation:Normal Performing Lab: Notes/Report: Test performed by [facility] [address] , [place] [address] Geo Gauthier MD, Manager International CLIA: [id number] TSH 1.85 0.43-5.25 mU/L P-Magnesium Reviewed date:04/01/2025 04:31:53 PM Interpretation:Normal Performing Lab: Notes/Report: Test performed by [facility] [address] , [address], [place] [address] Geo Gauthier MD, Manager International CLIA: [id number] Magnesium 2.1 1.6-2.4 mg/dL P-Lipid Panel Reviewed date:04/01/2025 04:31:52 PM Interpretation:Normal Performing Lab: Notes/Report: Test performed by [facility] [address] [place] [address] , [address], [place] [address] Geo Gauthier MD, Manager International CLIA: [id number] Lipid Panel Footnote See Below *Based on optimal reference values. Please refer to the DOS for additional information regarding diagnostic lipid reference ranges, patient management based on the recently updated lipid guidelines ([place] College [employer] Cardiology/[place] Heart Association Task Force on Clinical Practice [...] Results: 98 Units: mg/dL % Change: -9% P-T4 Free (thyroxine) Reviewed date:04/01/2025 04:31:52 PM Interpretation:Normal Performing Lab: Notes/Report: Test performed by [facility] [address] [place] [address] , [address], [place] [address] Geo Gauthier MD, Manager International CLIA: [id number] Thyroxine Free (free T4) 1.31 0.86-1.76 ng/dL P-Folate Reviewed date:04/01/2025 04:31:52 PM Interpretation:3.43 Performing Lab: Notes/Report: Test performed by [facility] [address] , [address], [place] [address] Geo Gauthier MD, Manager International CLIA: [id number] Folate 3.43 >4.59 ng/mL P-Comprehensive Metabolic Pa gretel (CMP) Reviewed date:04/01/2025 04:31:52 PM Interpretation:Normal Performing Lab: Notes/Report: Test performed by [facility] [address] , [address], [place] [address] Geo Gauthier MD, Manager International CLIA: [id number] Sodium 141 135-145 mmol/L Potassium 4.6 3.5-5.3 [...] 0.9 <0.2-1.2 mg/dL A/G Ratio 1.7 1.1-2.5 P-Vitamin B12 Reviewed date:04/01/2025 04:31:52 PM Interpretation:222 Performing Lab: Notes/Report: Test performed by [facility] [address] , [address], [place] [address] Geo Gauthier MD, Manager International CLIA: [id number] Vitamin B12 553 895-8529 pg/mL CBC Venipuncture (in house) Reviewed date:03/07/2025 04:14:48 [...] - 38 platlet 186 100 - 400 Medications Medication SIG (Take, Route, Frequency, Duration) Notes Start Date End Date Status Multivitamin - as directed Orally Not-Taking Zegerid 20-1100 MG 1 capsule on an empt y stomach Orally Once a day; Duration: 30 day(s) Not-Taking Calcium 600 MG 1 tablet with meals Orally Twice a day Not-Taking Omeprazole 20 MG 1 cap(s) Orally Two times a day; Duration: 90 days 06/16/2023 Not-Taking Potassium Chloride ER 10 MEQ 1 capsule with food Orally Twice a day; Duration: 30 day(s) 06/22/2023 Not-Taking Vitamin D3 50 MCG (2000 UT) 1 capsule Orally Once a day; Duration: 30 day(s) 03/13/2025 Active Folic Acid 1 MG 1 tablet Orally Once a day 11/15/2023 Not-Taking B-12 1000 MCG 1 tab(s) orally once a day; Duration: 30 days 08/01/2019 Active Bromfed DM 2-30-10 MG/5ML 5-10 mL Orally four times a day, prn 03/01/2024 Not-Taking Folic Acid 1 MG 1 tablet Orally Once a day; Duration: 30 days 03/13/2025 Active Pregabalin 50 MG 1 capsule Orally Two times a day; Duration: 30 day(s) 11/02/2023 Not-Taking Immunizations Vaccine Route Administration Date Status Comme nts COVID 19 Efren Unknown 08/12/2020 Administered COVID 19 Moderna Unknown 05/06/2021 Administered Fluzone Quad (6months&older) IM Intramuscular 03/20/2020 Administered Fluzone Quad (6months&older) IM Intramuscular 03/07/2025 Administered PNEUMOVAX 23 VACCINE IM Intramuscular 05/14/2020 Administe red Tetanus Tdap-Adacel (over 7yrs) Unknown 02/10/2015 Administered Tetanus Tdap-Adacel (over 7yrs) Unknown 10/20/2023 Administered Problems Problem Type SNOMED Code ICD Code Onset Dates Problem Status W/U Status Risk Notes Problem Essential hypertension (25529651) Essential (primary) hypertension (I10) Active confirmed Problem Vitamin D deficiency (94647153) Vitamin D deficiency (E55.9) Active confirmed Problem Morbid obesity (308550099) Morbid obesity (E66.01) Active confirmed Problem Body mass index 40+ - severely obese (349845302) BMI 50.0-59.9, adult (Z68.43) Active confirmed Problem Mixed anxiety and depressive disorder (843737915) Depression with anxiety (F41.8) Active confirmed Problem Hypocalcemia (1484074) Hypocalcemia (E83.51) Active confirmed Problem Fibromyalgia (686696953) Fibromyalgia (M79.7) Active confirmed Problem Mixed hyperlipidemia (149923962) Mixed hyperlipidemia (E78.2) Active confirmed Problem Chronic pain (92542191) Other chronic pain (G89.29) Active confirmed Problem Constipation (25428240) Constipation, unspecified constipation type (K59.00) Active confirmed Problem Acquired hypothyroidism (698366040) Acquired hypothyroidism (E03.9) Active confirmed Problem Gastroesophageal reflux disease (disorder) (335229927) Chronic GERD (K21.9) Active confirmed Problem Morbid obesity (491419071) Morbid obesity due to excess calories (E66.01) Active confirmed Problem Morbid obesity (106457378) Obesity, morbid, BMI 40.0-49.9 (E66.01) Active confirmed Problem Malignant melanoma (911617252) Malignant melanoma (C43.9) Active confirmed Problem Seasonal allergic rhinitis (355993990) Seasonal allergic rhinitis, unspecified trigger (J30.2) Active confirmed Problem Localized, primary osteoarthritis of the wrist (183316973) 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) Active confirmed Problem Metastatic malignant melanoma (disorder) (358205043) Metastatic melanoma (C79.9) Active confirmed Problem Morbid obesity (291092991) Morbid obesity with body mass index of 50 or higher (E66.01) Active confirmed Problem S/P gastric sleeve procedure (Z90.3) Active confirmed Vital Signs Heart Rate 58 /min 03/07/2025 Blood pressure diastolic 80 mm Hg 03/07/2025 Height 64.50 in 03/07/2025 Blood pressure systolic 128 mm Hg 03/07/2025 Weight 150.4 lbs 03/07/2025 BMI 25.41 kg/m2 03/07/2025 Encounters Encounter Location Date Provider [facility] [address] [place] [id number] 03/07/2025 Ольга Warren Adult general medica l [...] lipid Z13.220 and Encounter for immunization Z23 [facility] [place] [id number] 02/11/2025 Svetlana [facility]field [facility] [address] [place] [id number] 03/13/2025 Ольга [facility] [place] [phone] 03/31/2025 Ольга Warren Assessments Encounter Date Diagnosis (ICD Code) Assessment Notes Treatment Notes Treatment Clinical Notes Section Notes 03/07/2025 Folic acid deficiency (ICD-10 - E53.8) 03/07/2025 Adult general medical examination (ICD-10 - Z00.00) Patient instructed to return to office Annually for Annual Wellness Visits to include annual screenings of Pain assessment, Functional Ability assessment, Cognitive Ability assessment, Fall Risk assessment, Depression screening and Bladder control screening. 03/07/2025 Fibromyalgia (ICD-10 - M79.7) 03/07/2025 S/P [...] immunization (ICD-10 - Z23) Plan Of Treatment Pending Test Test Name Order Date Bone density 03/07/2025 colonoscopy 03/07/2025 Mammogram 03/07/2025 Next Appt Details Provider Name:Ольга veronica, 05/21/2025 10:30:00 AM, [address] [facility], [address], [place], [place], [id number], Insurance Providers Payer Name Payer Address Payer Phone Subscriber Number Group Number Insured Name Patient Relationship to Insured Coverage Start Date Coverage End Date [employer] (MEDICAR E) [address] [address] [place] [address] [phone] [id number] FELICIA SLAUGHTER Self - patient is the insured Medications Administered Medication Instructions Date of Administration Dosage Notes Dexamethasone 03/27/2006 1 mL Dexamethasone 02/26/2007 1 mL Dexamethasone 11/18/2020 1 mL Shot given by [facility] (General) History Medical History History ICD Code Hyperlipidemia Hypertension, Dx: 2013 Vitamin D deficiency, Dx: 2013 Stage 4 metastatic melanoma fibromyalgia Polyarthralgia, s/p Rheumatology evaluat ion 2017 J&J Covid Vaccine August Surgical History Surgery Date(Month/Year) Appendectomy Tonsilectomy, Adenoidectomy LT Should Melanoma Tubal Ligation Gastric Sleeve 01/13/2023 EGD x 2 Hospitalization History Reason Date(Month/Year) Sinus Infection- [facility] 03/2014 Dehydration
--- OUTSIDE RECORDS SUMMARY | 2025-04-03 08:54 | XMS_ITS | Encounter Summary ---
Author Organization [facility] Address [address] [place] [address] Care Team Providers Care Inspector Air Carrier Name Role Phone Antonio Odell MD Primary Care Provider [phone] Kendell Merchant MD Unavailable Encounter Details Date Type Department Care Team (Late st Contact Info) Description 05/04/2023 Outside Procedure [address] [address] Provider, External Social History Tobacco Use Types Packs/Day Years Used Date Smoking Tobacco: Never Smokeless Tobacco: Never Alcohol Use Standard Drinks/Week Comments Not Currently 0 (1 standard drink = 0.6 oz pur e alcohol) PHQ-2 Answer Date Recorded Patient Health Questionnaire-2 Score 0 04/26/2023 CAGE ASSESSMENT Answer Date Recorded Cage unable [...] drink first t marivel in the morning (EYE-DIETARY MANAGER) to steady your nerves or to get rid of a hangover? 0 02/14/2023 CAGE Questionnaire Score 0 023 PHQ-2A Answer Date Recorded Depression Risk 0 05/19/2022 Comments No Sex and Gender Information Value Date Recorded Sex Assigned at Not on file Legal Sex Female 5:57 PM EDT Gender Identity Not on file Sexual Orientation Not on file documented as of this encounter Plan of Treatment Upcoming Encounters Date Type Department Care Team (Late st Contact Info) Description 03/12/2026 9:00 AM EDT Appointment [facility] [address] [place] [address] 03/12/2026 10:20 AM EDT Appointment [facility] [address] [place] [address] 03/12/2026 1:30 PM EDT Office Visit [facility] [address] [place] [address] Barbie Zendejas, CHURN TENDER 800 [facility] [address] [place] [address] documented as of this encounter Procedures Procedure Name Priority Date/Time Associated Diagnosis Comments EGD 05/04/2023 9:18 AM EST documented in this encounter Results * EGD (05/04/2023 9:18 AM EST) Anatomical Region Laterality Modality Endoscopy 05/04/2023 8:58 AM EST Impressions 05/04/2023 9:18 AM EST Please see media tab for the result. Information added by interface. Narrative Procedure Note Edwin Thompson MD - 05/04/2023 IMPRESSION: Please see media tab for the result. Information added by interface. us External Provider GI PROCEDURE ORDERABLES Final Result documented in this encounter Visit Diagnoses Not on filedocumented in this encounter Additional Health Concerns Assessment Noted Time A fall risk assessment has been complete d for the patient 04/26/2023 9:50 AM EST A Body Mass Index follow-up plan has been documented for the patient 05/01/2023 8:27 AM EST documented as of this encounter Care Teams Inspector Air Carrier Relationship Specialty Start Date End Date Antonio Odell MD [address] [facility] [address] [place] [address] PCP - General 10/16/20 Kendell Merchant MD 800 [facility] [address] [place] [address] Consulting Physician Medical Oncology 05/12/21 documented as of this encounter
--- OUTSIDE RECORDS SUMMARY | 2025-04-03 08:54 | XMS_ITS | Encounter Summary ---
Author Organization [facility] Address [address] [place] [address] Care Team Providers Care Sewing Machine Maintenance Mechanic Name Role Phone Antonio Odell MD Primary Care Provider + [phone] Kendell Merchant MD Unavailable Encounter Details Date Type Department Care Team (Late st Contact Info) Description 02/12/2025 Telephone [facility] [address] [place] [address] Barbie Zendejas, BULLET ASSEMBLY PRESS OPERATOR 800 [facility] [address] [place] [address] Social History Tobacco Use Types Packs/Day Years Used Date Smoking Tobacco: Never Smokeless Tobacco: Never Alcohol Use Standard Drinks/Week Comments Not Currently 0 (1 standard drink = 0.6 oz pur e alcohol) PHQ-2 Answer Date Recorded Patient Health Questionnaire-2 Score 0 01/08/2024 CAGE ASSESSMENT Answer Date Recorded Cage unable [...] drink first t marivel in the morning (EYE-ROOF FITTER) to steady your nerves or to get rid of a hangover? 0 02/14/2023 CAGE Questionnaire Score 0 023 PHQ-2A Answer Date Recorded Depression Risk 0 05/19/2022 Comments No Sex and Gender Information Value Date Recorded Sex Assigned at Not on file Legal Sex Female 5:57 PM EDT Gender Identity Not on file Sexual Orientation Not on file documented as of this encounter Miscellaneous Notes * Telephone Encounter - Ludmila Coon Neema - 02/12/2025 10:39 AM EDT Patient Phone Message Reason for Call: Ms. Weinstein woke up with a head cold this morning and doesn't she will be able to make it to her appts tmw she is needing them to be R/S MOISES MRI/CT and her appt with Barbie she said could they still be al in the same day Best contact number and optimal time of day to reach caller: [phone] Note: Please do not reply to this message. Follow-up communication and further actions as a result of this message need to be communicated with the patient directly, if the patient is not active onMyChart. If the patient is active on MyChart, they will receive notification of the communication/outcome via [employer]. documented in this encounter Plan of Treatment Upcoming Encounters Date Type Department Care Team (Late st Contact Info) Description 03/12/2026 9:00 AM EDT Appointment [facility] Radiology [address] [place] [address] 03/12/2026 10:20 AM EDT Appointment [facility] [address] [place] [address] 03/12/2026 1:30 PM EDT Office Visit [facility] [address] [place] [address] Barbie Zendejas, BULLET ASSEMBLY PRESS OPERATOR 800 [facility] Quyen Shabazz [facility] [address] [place] [address] documented as of this encounter Goals Goal [...] documented as of this encounter Visit Diagnoses Not on filedocumented in this encounter Additional Health Concerns Assessment Noted Time A fall risk assessment has been complete d for the patient 11/28/2024 9:35 AM EDT A Body Mass Index follow-up plan has been documented for the patient 01/21/2025 8:08 AM EDT documented as of this encounter Care Teams Sewing Machine Maintenance Mechanic Relationship Specialty Start Date End Date Antonio Odell MD [address] [place] [address] PCP - General 10/16/20 Kendell Merchant MD [address] [address] Consulting Physician Medical Oncology 05/12/21 documented as of this encounter
--- OUTSIDE RECORDS SUMMARY | 2025-04-03 08:54 | XMS_ITS | Clinical Summary ---
Author Organization [facility] Address [address] [facility] [address] [place] [address] Phone Care Team Providers Care Hat Body Sorter Name Role Phone Yarely Edmondson [phone] Conditions or Problems Problem Name Problem Code Onset Date Status Entry Date Provider Comment Standard Description Annotate METASTATIC TUMOR TO BRAIN 53990833 (SNOMED CT) Active Ursula Mcdaniel Metastatic malignant neoplasm to brain MELANOMA 162563974 (SNOMED CT) Active Ursula Mcdaniel Melanocytic neoplasm Medications No information available. Medications Administered No information available. Allergies, Adverse Reactions, Alerts No information available. Results No information available. Plan of Care No information available. Procedures Code Procedure Name Date Entry Date 52421 MRI Spectroscopy [id number] Magnevist Vital Signs No information available. Immunizations No information available. Advance Directives No information available.
--- OUTSIDE RECORDS SUMMARY | 2025-04-03 08:55 | XMS_ITS | Encounter Summary ---
Author Organization [facility] Address [address] [place] [address] Care Team Providers Care Behavioral Health Consultant Name Role Phone Antonio Odell MD Primary Care Provider + [phone] Kendell Merchant MD Unavailable Reason for Visit * Reason Onset Date Comments Results 03/07/2025 Patient called a nd is aware if MRI results Encounter Details Date Type Department Care Team (Late st Contact Info) Description 03/07/2025 Telephone [facility] [address] [place] [address] Daxa Felipe, RN [id number] Results (Patient called and is aware if MRI results) Social History Tobacco Use Types Packs/Day Years [...] drink first t marivel in the morning (EYE-PRINT DEVELOPER) to steady your nerves or to get [...] Info) Description 03/12/2026 9:00 AM EDT Appointment [facility] Radiology [address] [place] [address] 03/12/2026 10:20 AM EDT Appointment [facility] [address] [place] [address] 03/12/2026 1:30 PM EDT Office Visit [facility] Multidisciplinary Oncology Clinic [address] [place] [address] Barbie Zendejas, ENGINEHOUSE BRAKEMAN 800 [facility] [address] [place] [address] documented as of this encounter Goals Goal [...] documented as of this encounter Care Teams Behavioral Health Consultant Relationship Specialty Start Date End Date Antonio Odell MD [address] [facility] [address] [place] [address] PCP - General 10/16/20 Kendell Merchant MD [address] [address] Consulting Physician Medical Oncology 05/12/21 documented as of this encounter
--- OUTSIDE RECORDS SUMMARY | 2025-04-03 08:55 | XMS_ITS | Encounter Summary ---
Author Organization [facility] Address [address] [place] [address] Care Team Providers Care Desk Operator Name Role Phone Antonio Odell MD Primary Care Provider + [phone] Kendell Merchant MD Unavailable Encounter Details Date Type Department Care Team (Latest Contact Info) Description 03/05/2025 Travel Social History Tobacco Use Types Packs/Day Years [...] drink first t marivel in the morning (EYE-PRIVATE EQUITY ASSOCIATE) to steady your nerves or to get [...] Carrie Gomez documented as of this encounter Plan of Treatment Upcoming Encounters Date Type Department Care Team (Late st Contact Info) Description 03/12/2026 9:00 AM EDT Appointment [facility] Radiology [address] [place] [address] 03/12/2026 10:20 AM EDT Appointment [facility] [address] [place] [address] 03/12/2026 1:30 PM EDT Office Visit [facility] Multidisciplinary Oncology Clinic [address] [place] [address] Barbie Zendejas, SUPERVISOR FORMING DEPARTMENT [address] [address] documented as of this encounter Goals Goal [...] documented as of this encounter Care Teams Desk Operator Relationship Specialty Start Date End Date Antonio Odell MD [address] [place] [address] PCP - General 10/16/20 Kendell Merchant MD 800 [facility] [address] [place] [address] Consulting Physician Medical Oncology 05/12/21 documented as of this encounter
--- OUTSIDE RECORDS SUMMARY | 2025-04-03 08:55 | XMS_ITS | Encounter Summary ---
Author Organization [facility] Address [address] [id number] Care Team Providers Care Roll Operator Name Role Phone Antonio Odell MD Primary Care Provider + [phone] Kendell Merchant MD Unavailable Reason for Referral * Imaging (Routine) - Pending Review Specialty Diagnoses / Procedures Referred By Contac t Referred To Contact Radiology Diagnoses Malignant melanoma, unspecified site (CMS/HCC) Procedures MR Head w and wo IV Contrast Barbie Zendejas APRN [address] [address] Phone: tel: fax: Referral ID Status Reason Start Date Expiration Date V isits Requested Visits Authorized [id number] Pending Review 03/07/2025 09/06/2026 1 1 * Imaging (Routine) - Pending Review Specialty Diagnoses / Procedures Referred By Contgama t Referred To Contact Radiology Diagnoses Malignant melanoma, unspecified site (CMS/HCC) Procedures CT Chest w IV Contrast Barbie Zendejas APRN [address] [facility] [address] [place] [address] Phone: tel: fax: Referral ID Status Reason Start Date Expiration Date V isits Requested Visits Authorized [id number] Pending Review 03/07/2025 09/06/2026 1 1 * Imaging (Routine) - Pending Review Specialty Diagnoses / Procedures Referred By Zackery connolly Referred To Contact Radiology Diagnoses Malignant melanoma, unspecified site (CMS/HCC) Procedures CT Abdomen Pelvis w IV Contrast Barbie Zendejas APRN [address] [place] [address] Phone: tel: fax: Referral ID Status Reason Start Date Expiration Date V isits Requested Visits Authorized [id number] Pending Review 03/07/2025 09/06/2026 1 1 Encounter Details Date Type Department Care Team (Late st Contact Info) Description 03/07/2025 Orders Only [facility] [address] [place] [address] Daxa Felipe, RN [id number] Malignant melanoma, unspecified site (CMS/HCC) (Primary Dx) [...] drink first t marivel in the morning (EYE-INTERNATIONAL RECRUITER) to steady your nerves or to get [...] AM EDT Appointment [facility] [address] [place] [address] 03/12/2026 10:20 AM EDT Appointment [facility] [address], [address] [place] [address] 03/12/2026 1:30 PM EDT Office Visit [facility] [address] [place] [address] Barbie Zendejas R, SUMMER NANNY [address] [facility] [address] [place] [address] Scheduled Orders Name Type Priority Associated Diagnoses Orde r Schedule CT Abdomen Pelvis w IV Contrast Imaging Routine Malignant melanoma, unspecified site (CMS/HCC) Expected: 03/07/2026 (Approximate), Expires: 09/08/2026 CT Chest w IV Contrast Imaging Routine Malignant melanoma, unspecified site (CMS/HCC) Expected: 03/07/2026 (Approximate), Expires: 09/08/2026 MR Head w and wo IV Contrast Imaging Routine Malignant melanoma, unspecified site (CMS/HCC) Expected: 03/07/2026 (Approximate), Expires: 09/08/2026 documented as of this encounter Goals Goal [...] documented as of this encounter Care Teams Roll Operator Relationship Specialty Start Date End Date Antonio Odell MD [address] [facility] [address] [address] PCP - General 10/16/20 Kendell Merchant MD [address] [address] Consulting Physician Medical Oncology 05/12/21 documented as of this encounter
--- OUTSIDE RECORDS SUMMARY | 2025-04-03 08:55 | XMS_ITS | Clinical Summary ---
Author Organization [facility] Address [address] [place] [address] Care Team Providers Care Workers' Compensation Claims Examiner Name Role Phone Antonio Odell MD Primary Care Provider [phone] Kendell Merchant MD Unavailable Allergies Active Allergy Reactions Criticality Noted Date Comments Azithromycin Nausea 09/10/2020 Iodinated Contrast Media Hives,Itching Medium 05/04/2018 Iv Contrast Hives,Itching Medium 10/11/2017 Iodinated Contrast no issues with MRI contrast Penicillins Hives,Itching Medium 09/01/2016 Tape/Bandaid Adhesive Other - please document in the comment field Low 12/28/2023 Pulls skin off Medications levothyroxine (Synthroid, Levoxyl) 50 MCG tablet Take 1 tablet (50 mcg) by mouth 1 (one) time each day before breakfast. 7 Active losartan-hydroC HLOROthiazide (Hyzaar) 100-25 MG tablet Take 1 tablet by mouth 1 (one) time each day. TAKING HALF A PILL 7 Active sertraline (Zoloft) 50 MG tablet Take 1 tablet (50 mg) by mouth 1 (one) time each day. 8 Active pregabalin (Lyrica) 100 MG capsule Take 1 capsule (100 mg) by mouth 2 (two) times a day if needed. Active Multiple Vitamins-Iron (DAILY MULTIVITAMINS/I RHETT PO) Take 1 Chewable tablet by mouth 1 (one) time each day. Active Ca Phosphate-Delfina calciferol (Calcium 500 + D3) 250-12.5 MG-MCG chewable tablet Chew 1 Chewable tablet 1 (one) time each day. Active omeprazole (PriLOSEC) [address] capsule Take 1 capsule (20 mg) by mouth 2 (two) times a day. Do not crush or chew. 30 capsule 1 3 Active Additional Information Patient not taking.Reported on 03/05/2025 promethazine (Phenergan) 25 MG tablet Take 1 tablet (25 mg) by mouth every 6 (six) hours if needed for nausea or vomiting. 30 tablet 2 3 Active Additional Information Patient not taking.Reported on 03/05/2025 potassium chloride ER (Micro-K) 10 MEQ ER capsule TAKE ONE CAPSULE BY MOUTH TWICE DAILY WITH FOOD 4 Active folic acid (Folvite) 1 MG tablet Take 1 tablet (1,000 mcg) by mouth 1 (one) time each day. 4 Active pregabalin (Lyrica) 50 MG capsule Take 1 capsule (50 mg) by mouth every night. 4 Active Multiple Vitamins-Minera ls (MULTIVITAMIN WOMEN 50+ PO) Take by mouth in the evening. Active omega-3 (Fish Oil) 1000 MG capsule Take 1 capsule (1,000 mg) by mouth daily. Active oxyCODONE (Roxicodone) 5 MG immediate release tablet Take 1 tablet by mouth every 6 hours as needed for severe pain. 25 tablet 5 Active Additional Information Patient not taking.Reported on 03/05/2025 acetaminophen (Tylenol) 500 MG tablet Take 2 tablets by mouth every 6 hours as needed for pain. 100 tablet 1 5 Active Additional Information Patient not taking.Reported on 03/05/2025 ibuprofen 200 MG tablet Take 1 tablet by mouth every 6 hours as needed for mild pain. 100 tablet 1 5 Active Additional Information Patient not taking.Reported on 03/05/2025 clobetasol (Temovate) 0.05 % cream apply a thin layer topically TO THE affected area(s) TWICE DAILY ON monday, monday, AND monday no more THAN 14 DAYS a MONTH 4 Active brompheniramine -pseudoephedrin e-DM 30-2-10 MG/5ML syrup TAKE 1 TO 2 TEASPOON(S)FUL (5 TO 10 ML) BY MOUTH FOUR TIMES DAILY NEEDED 4 Active Active Problems Problem Noted Date Diagnosed Date Osteopenia 03/22/2024 Scapholunate advanced collapse of right wrist H/O gastric sleeve 02/17/2023 Overview (02/17/2023): - performed by Dr. Thompson on 01/13/23 - will discharge on post sleeve diet protocol Hypothyroidism 09/22/2022 Wrist pain, right 09/15/2022 Overview (09/15/2022): Added automatically from request for surgery [id number] Obesity, Class III, BMI 40-49.9 (morbid obesity) 07/01/2022 Overview (02/14/2023): S/p laparoscopic repair of hiatal hernia repair without mesh and sleeve gastrectomy on 01/13/23 Hypertension 07/01/2022 Gastroesophageal reflux disease 07/01/2022 Multiple joint pain 07/01/2022 Fatty liver 07/01/2022 Malignant melanoma 05/19/2022 Resolved Problems Problem Noted Date Diagnosed Date Resolved Date Acute kidney injury 02/15/2023 02/24/20 25 Overview (02/17/2023): -Likely pre-renal 2/2 poor PO intake -continuing CLD -Creatinine down-trending and pt making excellent UOP (resolving) Nausea 02/14/2023 02/17/2023 Hiatal hernia 09/22/2022 01/14/2023 Shortness of breath on exertion 07/01/2022 02/23/2025 Fatigue 07/01/2022 02/23/2025 Encounters Date Type Department Care Team Description 03/07/2025 Telephone [facility] [address] [place] [address] Daxa Felipe, RN Results (Patient called and is aware if MRI results) 03/07/2025 Orders Only [facility] [address] [place] [address] Daxa Feliep, RN Malignant melanoma, unspecified site (CMS/HCC) (Primary Dx) 03/05/2025 2:30 PM EDT Office Visit [facility] [address] [place] [address] Barbie Zendejas, KEV Malignant melanoma, unspecified site (CMS/HCC) (Primary Dx) 03/05/2025 10:50 AM EDT - 03/05/2025 11:59 PM EDT Hospital Encounter [facility] Radiology [address], [address] [place] [address] Malignant melanoma, unspecified site (CMS/HCC) Discharge Disposition: Home or Self Care 03/05/2025 10:05 AM EDT - 03/05/2025 10:49 AM EDT Hospital Encounter [facility] CT [address] [place] [address] Malignant melanoma, unspecified site (CMS/HCC) Discharge Disposition: Home or Self Care 03/05/2025 Travel 02/12/2025 Telephone [facility] [address] [place] [address] Barbie Zendejas APRN 01/20/2025 1:45 PM EDT Office Visit [facility] [address] [place] [address] Dolores Darling Wrist pain, right (Primary Dx) 01/20/2025 12:50 PM EDT Office Visit [facility] [address] [place] [address] Grady Dominguez MD Carpal tunnel syndrome, left (Primary Dx) 01/20/2025 12:43 PM EDT - 01/20/2025 11:59 PM EDT [facility] [address] [place] [address] Wrist pain, right Discharge Disposition: Home or Self Care 01/20/2025 Orders Only [facility] [address] [place] [address] Daxa Felipe, RN Malignant melanoma, unspecified site (CMS/HCC) (Primary Dx) 01/20/2025 Travel 01/20/2025 Telephone [facility] [address] [place] [address] Barbie Zendejas APRN 01/10/2025 10:15 AM EDT Office Visit [facility] [address] [place] [address] Dolores Darling Wrist pain, right (Primary Dx) 01/10/2025 Travel from Last 3 Months Family History Medical History Relation Name Comments Non-Hodgkin's lymphoma Brother FH: n on-Hodgkin's lymphoma Lymphoma Other 1 Other cancer Other 2 Breast cancer Sister FH: breast can cer Relation Name Status Comments Brother Other 1 Other 2 Sister Social History Tobacco Use Types Packs/Day Years Used Date Smoking Tobacco: Never Smokeless Tobacco: Never Tobacco Cessation:Counseling Given: Yes Alcohol Use Standard Drinks/Week Comments Not Currently [...] drink first t marivel in the morning (EYE-NEONATAL PEDIATRIC NURSE) to steady your nerves or to get rid of a hangover? 0 02/14/2023 CAGE Questionnaire Score 0 023 PHQ-2A Answer Date Recorded Depression Risk 0 05/19/2022 Comments No Sex and Gender Information Value Date Recorded Sex Assigned at Not on file Legal Sex Female 5:57 PM EDT Gender Identity Not on file Sexual Orientation Not on file Last Filed Vital Signs Vital Sign Reading Time Taken Comments Blood Pressure 134/84 03/05/2025 2:03 PM EDT Pulse 86 03/05/2025 2:03 PM EDT Temperature 36.4 C (97.6 F) 03/05/2025 2:03 PM EDT Respiratory Rate 16 09/19/2024 9:45 AM EDT Oxygen Saturation 99% 03/05/2025 2:03 PM EDT Inhaled Oxygen Concentration - - Weight 67.6 kg (149 lb 0.5 oz) 03/05/2025 2:03 P M EDT Height 161.3 cm (5' 3.5 ) 03/05/2025 2:03 PM EDT Body Mass Index 25.99 03/05/2025 2:03 PM EDT Plan of Treatment Upcoming Encounters Date Type Department Care Team (Late st Contact Info) Description 03/12/2026 9:00 AM EDT Appointment [facility] Radiology [address], [address] [place] [address] 03/12/2026 10:20 AM EDT Appointment [facility] [address] [place] [address] 03/12/2026 1:30 PM EDT Office Visit [facility] [address] [place] [address] Barbie Zendejas, COAT FITTER 800 [facility] [address] [place] [address] Health Maintenance Due Date Last Done Comments [facility]-Medicare Annual Wellness (AWV) 1960 [facility]-/Child/Adol SDOH Screenings 1960 [facility]- SDOH Screenings 1980 [facility]-Adult SDOH Screenings 1980 [facility]-Hepatitis A Vaccines (1 of 2 - Risk 2-dose series) 1981 [facility]-Zoster Vaccines (1 of 2) 1981 CT Colonography 2007 Colonoscopy 2007 FIT-DNA 2007 FIT 2007 FOBT 2007 Sigmoidoscopy 2007 [facility]-Colorectal Cancer Screening 2007 [facility]-Breast Cancer Screening 2012 [facility]-Pap Smear 08/27/2019 08/26/2016 [facility]-Pneumococcal Vaccine: 50+ Years (2 of 2 - PCV) 05/14/2021 05/14/2020 [facility]-Cervical Cancer Screening 08/26/2021 [facility]-HPV/Cotest 08/26/2021 08/26/2016 [facility]-RSV Vaccine: 60+ Years or (1 - Risk 60-74 years 1-dose series) 2022 [id number] Vaccine (3 - season) 2025 05/06/2021, 08/12/2020 [facility]-Depression Screening 03/05/2026 03/05/2025, 05/05 [facility]-DTaP,Tdap,and Td Vaccines (3 - Td or Tdap) 10/19/2033 10/20/2023, 02/10/2015 [facility]-HIV Screening Completed 02/14/2023 [facility]-Hepatitis C Screening Completed 02/14/2023 [facility]-Obesity Intervention Completed 025, 01/20/2025, 01/10/2025, Additional history exists [facility]-Influenza Vaccine Completed 03/07/2025, 020 HPV Vaccines Aged Out No longer eligi ble based on patient's age to complete this topic [facility]-HIB Vaccines Aged Out No longer e ligible based on patient's age to complete this topic [facility]-IPV Vaccines Aged Out No longer e ligible based on patient's age to complete this topic [facility]-Rotavirus Vaccines Aged Out No lo nger eligible based on patient's age to complete this topic Goals Goal Patient Goal Type Associated Problems [...] Improving( 8:01 AM EDT) No [employer] Implanted Type Area Rivet Sticker Device Identifier Shelf Expiration Date Model / Serial / Lot Plate Fusion Cup 7 Hole 14mm - Sn/A - [id number] Implanted:Qty: 1 on 09/19/2024 by Grady Dominguez MD at [facility] Right: Wrist [id number] / N/A / Screw 2.4mm Locking Compression 16mm - Sn/A - [id number] Implanted:Qty: 1 on 09/19/2024 by Grady Dominguez MD at [facility] Right: Wrist [employer]-[id number] / N/A / Screw 2.4mm Locking Compression 14mm - Sn/A - [id number] Implanted:Qty: 5 on 09/19/2024 by Grady Dominguez MD at [facility] Right: Wrist [employer]-[id number] / N/A / Screw 2.4mm Locking Compression 10mm - Sn/A - [id number] Implanted:Qty: 1 on 09/19/2024 by Grady Dominguez MD at [facility] Right: Wrist [employer]-[id number] / N/A / Graft Bone Dbm Gel 5cc - [id number] Implanted:Qty: 1 on 09/19/2024 by Grady Dominguez MD at [facility] Right: Wrist [employer] ([employer])-[id number] 11/14/2026 [id number] / / [id number] Explanted Type Area Rivet Sticker Device Identifier Shelf Expiration Date Model / Serial / Lot Screw 2.4mm Locking Compression 10mm - Sn/A - [id number] Explanted:Qty: 1 on 09/19/2024 at [facility] Right: Wrist [id number] / N/A / Procedures Procedure Name Priority Date/Time Associated Diagnosis Comments MR HEAD W AND WO IV CONTRAST Routine 03/05/2025 12:37 PM EDT Malignant melanoma, unspecified site (CMS/HCC) CT ABDOMEN PELVIS WO IV CONTRAST Routine 03/05/2025 10:35 AM EDT Malignant melanoma, unspecified site (CMS/HCC) CT CHEST WO IV CONTRAST Routine 03/05/20 10:35 AM EDT Malignant melanoma, unspecified site (CMS/HCC) XR WRIST RIGHT 3+ VIEWS Routine 01/21/20 12:53 PM EDT Wrist pain, right ED HIV 1/2 ANTIBODY/ANTIGEN SCREEN WITH REFLEX TO HIV I/II DIFFERENTIATION STAT 02/14/2023 3:55 PM EDT HEPATITIS C ANTIBODY - ED W/REFLEX TO HCV QUANT PCR STAT 02/14/2023 1:45 PM EDT CYTO DATA CONVERSION Routine 08/26/2016 12:00 AM EDT from Last 3 Months or Most Recently Relevant to Health Maintenance Results * MR Head w and wo [...] error, please notify the sender immediately at [phone] and permanently delete the original report and destroy any copies or printouts. Narrative 03/05/2025 8:28 PM EDT [facility] - Phone Outpatient NAME: Dolores Slaughter DATE OF EXAM: 03/05/2025 Patient No: [id number] Physician: Florence Date of : 1960 Past [...] [facility] - Phone Outpatient NAME: Dolores Slaughter DATE OF EXAM: 03/05/2025 Patient No: [id number] Physician: Florence Date of : 1960 Past [...] other significant change since the previous examination ofJune 24, 2022. No recurrence after left parietal [...] in error, pleasenotify the sender immediately at [phone] and permanently delete theoriginal report and destroy any copies or printouts. us Barbie Zendejas COAT FITTER IMG MRI PROCEDURES Final Resu lt * CT Chest wo IV Contrast (03/05/2025 [...] Deann Mesa MD on 03/05/2025 11:37 AM us Barbie Zendejas COAT FITTER IMG CT PROCEDURES Final Resul t * CT Abdomen Pelvis wo IV Contrast [...] on 03/05/2025 12:35 PM Barbie Mota Cristiana COAT FITTER IMG CT PROCEDURES Final Resul t * XR Wrist Right 3+ Views (01/20/2025 12:53 PM EDT) Anatomical Region Laterality Modality Upper Extremities, Wrist Right Digital Radiography Impressions 01/20/2025 1:42 PM EDT Unchanged findings of scaphoid excision and 4 corner fusion. CRITICAL RESULT: No. COMMUNICATION: Per this written report. Drafted by Ramón Saldana MD on 01/20/2025 1:41 PM Final report signed by Ramón Saldana MD on 01/20/2025 1:42 PM Narrative 01/20/2025 1:42 PM EDT CLINICAL INDICATION: pain TECHNIQUE: XR WRIST RIGHT 3+ VIEWS COMPARISON: None. FINDINGS: 3 views of the right wrist show scaphoid excision and 4 corner fusion. Joint space and alignment are unchanged. 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 Generalized osteopenia. Procedure Note Ramón Saldana MD - 01/20/2025 CLINICAL INDICATION: pain TECHNIQUE: XR WRIST RIGHT 3+ VIEWS COMPARISON: None. FINDINGS: 3 views of the right wrist show scaphoid excision and 4 corner fusion.Joint space and alignment are unchanged. Moderate osteoarthritis of thefirst carpometacarpal joint. Generalized osteopenia. IMPRESSION: Unchanged findings of scaphoid excision and 4 corner fusion. CRITICAL RESULT: No. COMMUNICATION: Per this written report. Drafted by Ramón Saldana MD on 01/20/2025 1:41 PM Final report signed by Ramón Saldana MD on 01/20/2025 1:42 PM Grady Dominguez MD IMG XR PROCEDURES Final Resu lt * ED HIV 1/2 Antibody/Antigen Screen w/Reflex to HIV 1/2 Differentiation (02/14/2023 3:55 PM EDT) HIV 1 & 2 Antibody/Antigen Screen Non Reactive Non Reactive 02/14/2023 4:35 PM EDT [facility] Comment:Screening for HIV 1 & 2 antibodies, and P24 antigen is NONREACTIVE. No confirmatory testing is required. Blood Venous blood specimen / Unknown Venipuncture / Unknown 02/14/2023 3:55 PM EDT 02/14/2023 3:58 PM EDT Kacey Rodriguez COAT FITTER LAB BLOOD ORDERABLES Final Result Performing Organization Address City/[facility]/ZIP Co de Phone Number [facility] [address] [place] [address] * Hepatitis C Antibody - ED (02/14/2023 1:45 PM EDT) Hepatitis C Antibody Negative Negative 02/14/2023 2:47 PM EDT [facility] Blood Venous blood specimen / Unknown Venipuncture / Unknown 02/14/2023 1:45 PM EDT 02/14/2023 1:48 PM EDT Kacey Rodriguez COAT FITTER LAB BLOOD ORDERABLES Final Result Performing Organization Address City/[facility] Co de Phone Number [facility] [address] [place] [address] * Cytology (08/26/2016 12:00 AM EDT) 08/26/2016 08/26/2016 8:5 7 AM EDT Narrative [facility] - 08/26/2016 11:30 AM EDT [facility] MR #: [id number] [facility] [address] [id number] 1960 (Age: 56) FW Collect Date: 08/26/2016 00:00 Receipt Date: 08/26/2016 08:57 Page 1 DEPARTMENT OF PATHOLOGY AND LABORATORY MEDICINE CYTOPATHOLOGY REPORT Email: [email or web address] ATTENDING MD/Practitioner: Maritza Merchant M.D. Service: [facility] Location: [facility] Reported: 08/26/2016 11:30 Collected: 08/26/2016 00:00 [facility] [address] [place] [address] OUTSIDE DIAGNOSIS UPPER ABDOMEN SOLID MASS, FNA (OUTSIDE CASE; [id number]; DOS 07/30/2015, CONCENTRATE AND CELL BLOCK): - MARKEDLY ATYPICAL EPITHELIOID CELLS CONSISTENT WITH MALIGNANCY, SEE COMMENT. COMMENT The concentrate shows few atypical epithelioid cells that are morphologically consistent with malignancy. However, no further characterization of this process is able to be performed on this specimen. The history of malignant melanoma is noted. Per outside report, the material reviewed is similar to that seen on the core biopsies of the same mass which was able to be completely evaluated. Please refer to outside report, PCL [id number]. That case could be requested for diagnosis confirmation. Electronically Signed Out Luisa Mae MD PROCEDURES/ADDENDA CLINICAL INFORMATION: Other Clinical Conditions: Specimen obtained on: 07/30/2015 CLINICAL DIAGNOSIS For clinical data and diagnosis (MALIGNANT) for this specimen ([id number]/ FNA, UPPER ABDOMINAL SOLID MASS) see final report issued by [facility] Pathology Department. SPECIMEN DESCRIPTION: A: OUTSIDE CONSULT CASE; [id number]; DOS 07/30/2015; FNA, UPPER ABDOMINAL SOLID MASS SLIDES RECEIVED x 2 ICD: C76.2 Malignant neoplasm of abdomen Z85.820 Personal history of malignant melanoma of skin F: A; C 58835 C CONS SNOMED CODES: A; [id number] [id number] A resident has participated in this service. A pathologist has performed and is responsible for the reported pathologic evaluation. Kendell Merchant MD LAB PATHOLOGY ORDERABLES Final R esult [facility] from Last 3 Months or Most Recently Relevant to Health Maintenance Insurance [facility] MEDICARE Advance Directives * Full Code (Latest Code Status on File) Date Activated Date Inactivated Comments 02/14/2023 3:55 PM 02/17/2023 1:40 PM Question Answer Comments Patient has decision-making capacity? Yes * Full Code Date Activated Date Inactivated Comments 01/13/2023 9:02 AM 01/14/2023 8:20 PM Question Answer Comments Patient has decision-making capacity? Yes Care Teams Workers' Compensation Claims Examiner Relationship Specialty Start Date End Date Antonio Odell MD [address] [facility] [address] [place] [address] PCP - General 10/16/20 Kendell Merchant MD [address] [address] Consulting Physician Medical Oncology 05/12/21
--- OUTSIDE RECORDS SUMMARY | 2025-04-03 08:55 | XMS_ITS ---
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 Thompson on 01/13/23 - will discharge on post sleeve diet protocol Hypothyroidism 09/22/2022 Wrist pain, right 09/15/2022 Overview (09/15/2022): Added automatically from request for surgery [id number] Obesity, Class III, BMI 40-49.9 (morbid obesity) 07/01/2022 Overview (02/14/2023): S/p laparoscopic repair of hiatal hernia repair without mesh and sleeve gastrectomy on 01/13/23 Hypertension 07/01/2022 Gastroesophageal reflux disease 07/01/2022 Multiple joint pain 07/01/2022 Fatty liver 07/01/2022 Malignant melanoma 05/19/2022 Current Treatment and Therapy Plans No current plan information found. Past Treatment and Therapy Plans Lifetime Dose Tracking * Chemical Lifetime Dose Automatic Entry Manual Entr y Fluoro Time 2.4 minutes 2.4 minutes 0 minutes Air Kerma 15 mGy 15 mGy 0 mGy Resolved Problems Problem Noted Date Diagnosed Date Resolved Date Acute kidney injury 02/15/2023 02/24/20 25 Overview (02/17/2023): -Likely pre-renal 2/2 poor PO intake -continuing CLD -Creatinine down-trending and pt making excellent UOP (resolving) Nausea 02/14/2023 02/17/2023 Hiatal hernia 09/22/2022 01/14/2023 Shortness of breath on exertion 07/01/2022 02/23/2025 Fatigue 07/01/2022 02/23/2025
== END 2025-04-03 23:59 | disposition home or self-care (01) ==
LOC: RAD 08:49
PROVIDERS: PCP Family Medicine; Visit Provider Physician Assistant
DX: Z12.31 Encounter for screening mammogram for malignant neoplasm of breast (principal); M81.0 Age-related osteoporosis without current pathological fracture; R92.323 Mammographic fibroglandular density, bilateral breasts; Z78.0 Asymptomatic menopausal state
CPT/HCPCS: 77063; 77067; 77080